=== PATIENT | male | born 1970 | race Caucasian/White ===

== ENCOUNTER → 2016-11-28 | Outpatient (CLI) | payer BC ==
[~2016-11-28] MED LIST: ALL100 PO; ALLO100T PO; ASPEC81 PO; ASPI81TA28 PO; ATOR-22 PO; CARV25TA2 PO; CLOB-65 EXT; CRG25 PO; FURO-85 PO; HMLI SC; INSDGI SC; INSU100I SC; INSU1INJ41 SC; LISI-461 PO; MAGN200T3 PO; METH1TAB81 PO; OMEP20TA14 PO
[2016-11-28 13:13] LABS: BASO ABS # 0.03 K/uL (0-0.2); COMPLETE YES; EOS % 2.9 %; HEMATOCRIT 44.6 % (42-52); IG% 0.3 %; LYMPH % 29.6 %; LYMPH ABS # 0.92 K/uL (1.2-3.4); MEAN CELL VOLUME 87.5 fL (80-100); MEAN CORPUSCULAR HGB CONC 33.2 g/dl (32-36); MEAN PLATELET VOLUME 10.8 fL (7.4-10.4); MONO % 19.9 %; NEUT % 46.3 %; PLATELET COUNT 158 K/uL (130-400); WHITE BLOOD COUNT 3.11 K/uL (4.8-10.8)
[2016-11-28 13:43] LABS: ESTIMATED AVERAGE GLUCOSE 192 mg/dl; HA1C FLAG Normal (Normal)
[2016-11-28 14:06] LABS: ALT/SGPT 38 U/L (12-78); AST/SGOT 17 U/L (15-37); BLOOD UREA NITROGEN 17 mg/dl (7-18); BUN/CREATININE RATIO 11.1 (10-20); CALCIUM 9.1 mg/dl (8.5-10.1); CARBON DIOXIDE 27 mmol/L (21-32); CHLORIDE 104 mmol/L (98-107); GLUCOSE 202 mg/dl (70-99); LYME DISEASE AB IGM NEG (NEG); MAGNESIUM 2.2 mg/dl (1.8-2.4); SODIUM 138 mmol/L (136-145); URIC ACID 5.7 mg/dl (2.6-7.2)
[2016-11-28 14:09] LABS: LYME DISEASE AB IGG NEG (NEG)
[2016-11-28 14:12] LABS: ALKALINE PHOSPHATASE 105 U/L (45-117); CHOLESTEROL 107 mg/dl (0-200); CHOLESTEROL/HDL RATIO 2.4; HDL CHOLESTEROL 44 mg/dl; LDL CHOLESTEROL CALCULATED 43 mg/dl; TRIGLYCERIDES 102 mg/dl (0-150); VERY LOW DENSITY LIPOPROT CALC 20 mg/dl
== END | disposition home or self-care (01) ==
LOC: C.LAB1850 11:39
PROVIDERS: ATTEND Internal Medicine
DX: R68.89 Other general symptoms and signs (principal); E10.65 Type 1 diabetes mellitus with hyperglycemia; M10.9 Gout, unspecified; I48.0 Paroxysmal atrial fibrillation; R80.9 Proteinuria, unspecified

== ENCOUNTER 2017-01-10 07:26 | Inpatient (IN) | payer BC ==
[~2017-01-10] VITALS: Ht 177.8 cm; Wt 65.1 kg
[~2017-01-10 07:26] MED LIST changes: -ALLO100T PO; -ASPI81TA28 PO; -ATOR-22 PO; -CARV25TA2 PO; -FURO-85 PO; -INSU100I SC; -INSU1INJ41 SC
[2017-01-10] MEDS ORDERED: ASPIRIN 81 MG CHEW PO STA (07:50)
[2017-01-10 07:58] LABS: BASO % 0.1 %; BASO ABS # 0.01 K/uL (0-0.2); COMPLETE YES; EOS % 0.4 %; HEMATOCRIT 44.9 % (42-52); IG% 0.1 %; LYMPH % 9.7 %; MEAN CORPUSCULAR HGB CONC 34.5 g/dl (32-36); MEAN PLATELET VOLUME 11.3 fL (7.4-10.4); MONO % 6.4 %; NEUT % 83.3 %; PLATELET COUNT 171 K/uL (130-400); RED BLOOD COUNT 5.16 M/uL (4.7-6.1); WHITE BLOOD COUNT 11.29 K/uL (4.8-10.8)
--- NOTE | 2017-01-10 08:00 | EMERGENCY ROOM VISIT NOTE ---
History Report prepared by Leslie: Judi Shah Under the Supervision of: Dr. Jere Ponce D.O. First contact with patient: 07:31 Chief Complaint: RESPIRATORY PROBLEMS Stated Complaint: HAVING TROUBLE BREATHING-CAN'T LIE DOWN Nursing Triage Summary: Pt reports sob and weakness since Wed evening. Cough when lying down. Midsternal cp into throat last night when lying down. Sweats. Hx of cardiomyopathy. History of Present Illness The patient is a 46 year old male who presents to the Emergency Room with complaints of severe and worsening shortness of breath starting 2 days ago. He has worsening difficulty breathing with lying down and exertion. He does not wear oxygen at home. While lying down last night, the patient had some mid- chest pain. He did not have any chest pain this morning. He denies any pleuritic chest pain, nausea, vomiting, diarrhea, lower extremity swelling, or any other complaints. He is unsure about any recent weight gain. He did not have any recent surgeries, or travels. The patient has a history of cardiomyopathy, diabetes, and hypertension. He had v-fib syncope in 2010. He has a pacemaker in place. He does not have a history of blood clots, or lung disease. He is not on any blood thinners. He denies any history of cigarette smoking. Source of History: patient Onset: 2 days ago Position: other (global) Symptom Intensity: severe Quality: other (shortness of breath) Timing: worsening Modifying Factors (Worsening): exertion, other (lying down) Associated Symptoms: No nausea, No vomiting, No diarrhea Review of Systems See HPI for pertinent positives & negatives. A total of 10 systems reviewed and were otherwise negative. Past Medical & Surgical Medical Problems: (1) Cardiomyopathy (2) Diabetes mellitus type 1 (3) Hypertension (4) Hypomagnesemia (5) Ventricular fibrillation Family History Diabetes mellitus FH: cancer FH: heart disease Hypertension Kidney disease Kidney stones Social History Smoking Status: Never Smoker Marital Status: single Occupation Status: employed Current/Historical Medications Scheduled Allopurinol (Zyloprim), 0.5 TAB PO BID Aspirin (Aspirin Ec), 81 MG PO DAILY Atorvastatin (Lipitor), 20 MG PO DAILY Carvedilol (Coreg), 25 MG PO BID Insulin Glargine-Lixisenatide (Soliqua 100/33 100-33 Unt-Mcg/ml), 38 UNITS SC HS Insulin Lispro (Human) (Humalog), SC WM Lisinopril (Zestril), 20 MG PO QAM Lisinopril (Zestril), 10 MG PO QPM Magnesium (Magnesium), 100 MG PO QAM Miscellaneous Medications Omeprazole Magnesium (Prilosec Otc), 20 MG PO Allergies Coded Allergies: Morphine (Verified Adverse Reaction, Unknown, SHORTNESS OF BREATH IF DELIVERED FAST, 01/10/17) STATED "IF IT'S DELIVERED FAST IT TAKES MY BREATH AWAY" Physical Exam Vital Signs Date Time Temp Pulse Resp B/P (MAP) Pulse Ox O2 Delivery O2 Flow Rate FiO2 01/10/17 12:30 88 18 109/73 97 Nasal Cannula 2.0 01/10/17 11:17 81 16 111/63 98 Nasal Cannula 2.0 01/10/17 10:24 104 01/10/17 09:11 100 18 127/79 95 Nasal Cannula 2.0 01/10/17 08:35 88 Room Air 01/10/17 07:41 111 01/10/17 07:31 88 Room Air 01/10/17 07:30 95 Nasal Cannula 2.0 01/10/17 07:29 37.1 117 20 145/83 88 Room Air Physical Exam GENERAL: Sitting up in bed, diaphoretic, ill-appearing. Nasal canula in place. EYE EXAM: normal conjunctiva OROPHARYNX: no exudate, no erythema, lips, buccal mucosa, and tongue normal and mucous membranes are moist NECK: supple, no nuchal rigidity, no adenopathy, non-tender. No JVD. LUNGS: Faint rhonchi bilaterally. Normal chest wall mechanics HEART: no murmurs, S1 normal and S2 normal ABDOMEN: abdomen soft, non-tender, normo-active bowel sounds, no masses, no rebound or guarding. BACK: Back is symmetrical on inspection and there is no deformity, no midline tenderness, no CVA tenderness. SKIN: no rashes and no bruising UPPER EXTREMITIES: upper extremities are grossly normal. LOWER EXTREMITIES: No pitting edema. Calves are equal bilaterally. NEURO EXAM: Normal sensorium, cranial nerves II-XII grossly intact, normal speech, no gross weakness of arms, no gross weakness of legs. Medical Decision & Procedures ER Provider Diagnostic Interpretation: X-ray and CTA results as stated below per my review and the radiologist's interpretation: SINGLE VIEW CHEST CLINICAL HISTORY: Atypical chest pain. FINDINGS: An AP, portable, upright chest radiograph is compared to study dated 03/10/2011. The examination is degraded by portable technique and patient rotation. A 3-lead cardiac AICD is unchanged in position and partially obscures the left upper chest. The heart is enlarged. The pulmonary vasculature is noncongested. The lungs and pleural spaces are clear. No pneumothorax is seen. The bony thorax is grossly intact. IMPRESSION: 1. Cardiomegaly and AICD. There is no radiographic evidence of congestive failure. 2. No airspace consolidation or pleural effusion is seen. Electronically signed by: Levon Caballero M.D. 01/10/2017 8:01 AM Dictated Date/Time: 01/10/2017 7:[address] ANGIOGRAPHY OF THE CHEST, PULMONARY EMBOLUS PROTOCOL CLINICAL HISTORY: Hypoxia. Elevated d-dimer. COMPARISON STUDY: Chest radiograph March 10, 2011 and March 05, 2017 per TECHNIQUE: Following IV administration of 92 mL of Optiray-320, helical axial images of the chest were obtained utilizing the pulmonary embolus protocol. Maximal intensity projections and sagittal and coronal reformats were viewed on an independent 3D workstation. IV contrast was administered without complication. A dose lowering technique was utilized adhering to the principles of ALARA. CT DOSE: 526.44 mGycm FINDINGS: No pulmonary emboli are identified although the segmental and subsegmental pulmonary arteries are suboptimally assessed due to respiratory motion and quantum mottle artifact. A left subclavian biventricular pacer is in place. There is moderate to marked cardiomegaly with pronounced left ventricular dilatation with there is moderate left atrial enlargement. There is no pericardial effusion. No enlarged axillary, mediastinal or hilar lymph nodes are present. Caliber of the thoracic aorta is normal. There are small bilateral pleural effusions. No pneumothorax is present. No consolidation is identified to suggest pneumonia. There are mild groundglass opacities within the lower lobes with suspected interlobular septal thickening. Bony thorax is unremarkable. There is probable fatty infiltration of the liver. IMPRESSION: 1. No pulmonary emboli identified. Segmental and subsegmental pulmonary arteries suboptimally assessed on this exam. 2. Moderate to marked cardiomegaly with marked left ventricular dilatation. Moderate left atrial dilatation. No pericardial effusion. 3. Small bilateral pleural effusions. 4. Findings suggestive of mild pulmonary edema. No consolidation to suggest pneumonia. Electronically signed by: Db Willoughby M.D. 01/10/2017 9:17 AM Dictated Date/Time: 01/10/2017 9:08 AM Laboratory Results 01/10/17 07:52 Red Blood Count 5.16, Mean Corpuscular Volume 87.0, Mean Corpuscular Hemoglobin 30.0, Mean Corpuscular Hemoglobin Concent 34.5, Mean Platelet Volume 11.3, Neutrophils (%) (Auto) 83.3, Lymphocytes (%) (Auto) 9.7, Monocytes (%) (Auto) 6.4, Eosinophils (%) (Auto) 0.4, Basophils (%) (Auto) 0.1, Neutrophils # (Auto) 9.41, Lymphocytes # (Auto) 1.10, Monocytes # (Auto) 0.72, Eosinophils # (Auto) 0.04, Basophils # (Auto) 0.01 01/10/17 07:52 Test 01/10/17 07:52 White Blood Count 11.29 K/uL (4.8-10.8) Red Blood Count 5.16 M/uL (4.7-6.1) Hemoglobin 15.5 g/dL (14.0-18.0) Hematocrit 44.9 % (42-52) Mean Corpuscular Volume 87.0 fL (80-100) Mean Corpuscular Hemoglobin 30.0 pg (25-34) Mean Corpuscular Hemoglobin Concent 34.5 g/dl (32-36) Platelet Count 171 K/uL (130-400) Mean Platelet Volume 11.3 fL (7.4-10.4) Neutrophils (%) (Auto) 83.3 % Lymphocytes (%) (Auto) 9.7 % Monocytes (%) (Auto) 6.4 % Eosinophils (%) (Auto) 0.4 % Basophils (%) (Auto) 0.1 % Neutrophils # (Auto) 9.41 K/uL (1.4-6.5) Lymphocytes # (Auto) 1.10 K/uL (1.2-3.4) Monocytes # (Auto) 0.72 K/uL (0.11-0.59) Eosinophils # (Auto) 0.04 K/uL (0-0.5) Basophils # (Auto) 0.01 K/uL (0-0.2) RDW Standard Deviation 41.1 fL (36.4-46.3) RDW Coefficient of Variation 12.9 % (11.5-14.5) Immature Granulocyte % (Auto) 0.1 % Immature Granulocyte # (Auto) 0.01 K/uL (0.00-0.02) D-Dimer 710 ug/L FEU (0-500) Anion Gap 8.0 mmol/L (3-11) Est Creatinine Clear Calc Drug Dose 87.1 ml/min Estimated GFR () 69.8 Estimated GFR (Non- 60.3 BUN/Creatinine Ratio 15.1 (10-20) Calcium Level 9.5 mg/dl (8.5-10.1) Total Creatine Kinase 124 U/L (39-308) Creatine Kinase MB 0.9 ng/ml (0.5-3.6) Creatine Kinase MB Ratio 0.7 (0-3.0) Troponin I 0.024 ng/ml (0-0.045) Pro-B-Type Natriuretic Peptide 2176 pg/ml (0-450) Triglycerides Level 89 mg/dl (0-150) Cholesterol Level 130 mg/dl (0-200) HDL Cholesterol 52 mg/dl LDL Cholesterol, Calculated 60 mg/dl VLDL Cholesterol, Calculated 18 mg/dl Cholesterol/HDL Ratio 2.5 Laboratory results per my review. Medications Administered Medications (Trade) Dose Ordered Sig/Ginette Route Start Time Stop Time Status Last Admin Dose Admin Aspirin (Aspirin Chew) 324 mg NOW STAT PO 01/10/17 07:50 01/10/17 07:51 DC 01/10/17 07:55 324 MG Carvedilol (Coreg Tab) 25 mg NOW ONCE PO 01/10/17 09:00 01/10/17 09:01 DC 01/10/17 09:11 25 MG ECG Indication: SOB/dyspnea Rate (beats per minute): 108 Rhythm: other (Atrial sensed ventricularly paced rhythm) Findings: LBBB, other (Right axis deviation) Comparison ECG Date: December 10, 2012 Change: no significant change ED Course ED COURSE: Vital signs were reviewed and showed hypertensive, tachycardic and hypoxic. The patients medical record was reviewed The above diagnostic studies were performed and reviewed. ED treatments and interventions as stated above. 0731: The patient was evaluated in room A03. A complete history and physical examination was performed. 0750: Aspirin 324 mg PO 0900: Carvedilol 25 mg PO 2125: I discussed the patient's case [facility]. Upon reevaluation, the patient is resting comfortably.I discussed my findings with the patient and he understands and agrees with the treatment plan. Based on the patients age, coexisting illnesses, exam and lab findings the decision to treat as an inpatient was made. The patient remained stable while under my care. The patient will be evaluated for further management. Medical Decision Differential diagnoses includes but is not limited to pneumonia, bronchitis, COPD/Asthma exacerbation, pneumothorax, pulmonary embolism, congestive heart failure, acute coronary syndrome Patient is a 46-year-old male with a past medical history of nonischemic cardiomyopathy with an AICD secondary to V. fib in 2010 that presents the ER for exertional shortness of breath associated with shortness of breath when lying down. On exam no overt signs of CHF with exception of mild rhonchi bilaterally. No JVD or pitting edema. Troponin is detectable but not positive. BNP slightly elevated. D-dimer was elevated. CT PE was performed and shows mild CHF. Patient is given home dose of calcium channel alesha. Updated at bedside. Patient was admitted to internal medicine with CHF and hypoxia with pulse ox on room air of 88%. Pacer interrogation was unremarkable. Medication Reconcilliation Current Medication List: was personally reviewed by me Blood Pressure Screening Patient's blood pressure: Elevated blood pressure Blood pressure disposition: Elevated BP felt to be situational Consults Time Called: 2119 Consulting Physician: [facility] Returned Call: 2125 I discussed the patient's case with Dr[facility] Impression Primary Impression: CHF (congestive heart failure) Additional Impressions: Hypoxia Cardiomyopathy Scribe Attestation The scribe's documentation has been prepared under my direction and personally reviewed by me in its entirety. I confirm that the note above accurately reflects all work, treatment, procedures, and medical decision making performed by me. Departure Information Dispostion Being Evaluated By Hospitalist Referrals RV. Lloyd MD (PCP) Patient Instructions My [facility] Problem Qualifiers Primary Impression: CHF (congestive heart failure) Congestive heart failure type: unspecified congestive heart failure type Congestive heart failure chronicity: unspecified congestive heart failure chronicity Qualified Codes: I50.9 - Heart failure, unspecified Additional Impressions: Cardiomyopathy Cardiomyopathy type: unspecified Qualified Codes: I42.9 - Cardiomyopathy, unspecified
[2017-01-10 08:13] LABS: BUN/CREATININE RATIO 15.1 (10-20); CALCIUM 9.5 mg/dl (8.5-10.1); CREATININE 1.4 mg/dl (0.60-1.40)
[2017-01-10 08:18] LABS: CKMB/CK RATIO 0.7 (0-3.0)
[2017-01-10] MEDS ORDERED: CARV25TA2 PO (08:23)
[2017-01-10] MEDS ORDERED: ASPI81TA28 PO (08:23)
[2017-01-10] MEDS ORDERED: ATOR-22 PO (08:23)
[2017-01-10] MEDS ORDERED: ALLO100T PO (08:23)
[2017-01-10] MEDS ORDERED: INSU1INJ41 SC (08:23)
[2017-01-10] MEDS ORDERED: INSU100I SC (08:23)
[2017-01-10 08:35] VITALS: O2SAT 88; Ht 177.8 cm; Wt 65.1 kg
[2017-01-10] MEDS ORDERED: OPTIRAY 320 IV PRN (08:45)
[2017-01-10] MEDS ORDERED: CARVEDILOL 25 MG TAB PO ONE (09:00)
--- NOTE | 2017-01-10 09:18 | DIAGNOSTIC IMAGING REPORT ---
CT ANGIOGRAPHY OF THE CHEST, PULMONARY EMBOLUS PROTOCOL CLINICAL HISTORY: Hypoxia. Elevated d-dimer. COMPARISON STUDY: Chest radiograph March 10, 2011 and March 05, 2017 per TECHNIQUE: Following IV administration of 92 mL of Optiray-320, helical axial images of the chest were obtained utilizing the pulmonary embolus protocol. Maximal intensity projections and sagittal and coronal reformats were viewed on an independent 3D workstation. IV contrast was administered without complication. A dose lowering technique was utilized adhering to the principles of ALARA. CT DOSE: 526.44 mGycm FINDINGS: No pulmonary emboli are identified although the segmental and subsegmental pulmonary arteries are suboptimally assessed due to respiratory motion and quantum mottle artifact. A left subclavian biventricular pacer is in place. There is moderate to marked cardiomegaly with pronounced left ventricular dilatation with there is moderate left atrial enlargement. There is no pericardial effusion. No enlarged axillary, mediastinal or hilar lymph nodes are present. Caliber of the thoracic aorta is normal. There are small bilateral pleural effusions. No pneumothorax is present. No consolidation is identified to suggest pneumonia. There are mild groundglass opacities within the lower lobes with suspected interlobular septal thickening. Bony thorax is unremarkable. There is probable fatty infiltration of the liver. IMPRESSION: 1. No pulmonary emboli identified. Segmental and subsegmental pulmonary arteries suboptimally assessed on this exam. 2. Moderate to marked cardiomegaly with marked left ventricular dilatation. Moderate left atrial dilatation. No pericardial effusion. 3. Small bilateral pleural effusions. 4. Findings suggestive of mild pulmonary edema. No consolidation to suggest pneumonia. Electronically signed by: Db Willoughby M.D. 01/10/2017 9:17 AM Dictated Date/Time: 01/10/2017 9:08 AM
[2017-01-10] MEDS ORDERED: MAGNESIUM HYDROXIDE SUSP 30 ML UDC PO PRN (10:15)
[2017-01-10] MEDS ORDERED: NITROGLYCERIN 0.4 MG SL PER TAB CHARGE SL PRN (10:15)
[2017-01-10] MEDS ORDERED: ACETAMINOPHEN 325 MG TAB PO PRN (10:15)
[2017-01-10] MEDS ORDERED: GLUCOSE 10 TABS/TUBE PO PRN (10:15)
[2017-01-10] MEDS ORDERED: GLUCAGON FOR INJ 1 MG VIAL SQ PRN (10:15)
[2017-01-10] MEDS ORDERED: DEXTROSE 50% 50 ML SYR IV PRN (10:15)
[2017-01-10] MEDS ORDERED: ZOLPIDEM TARTRATE 5 MG TAB PO PRN (10:15)
[2017-01-10] MEDS ORDERED: ALUMINUM/MAGNESIUM/SIMETH (MAALOX MAX) 30 ML UDC PO PRN (10:15)
[2017-01-10] MEDS ORDERED: GLUCOSE 40% GEL 15 GM TUBE PO PRN (10:15)
[2017-01-10 10:45] LABS: CHOLESTEROL/HDL RATIO 2.5
--- NOTE | 2017-01-10 11:34 | HISTORY & PHYSICAL EXAMINATION ---
DATE OF ADMISSION: 01/10/2017 CHIEF COMPLAINT: Shortness of breath. HISTORY OF PRESENT ILLNESS: The patient is a 46-year-old man with past medical history of diabetes mellitus, insulin requiring. The patient also has history of nonischemic cardiomyopathy started in 1997. He was at that time on Lasix, but he quickly got off Lasix. In 2002, the patient had a ventricular arrhythmia and was sent to [place] and had an AICD device placed. The patient was not on Lasix at that time and was doing okay on lisinopril and Coreg. Two days ago, patient started having shortness of breath. Worse when he lays flat with chest tightness. Also having some dry cough. The patient had to use more than 3 pillows to be able to sleep. The patient also was feeling hot and sweaty. His cough was mainly nonproductive and mainly when he lays flat. The patient presented today to the ED and was found to have an oxygen saturation of 88%. ER physician did a D-dimer that was mildly elevated. CT angiogram was done and revealed no pulmonary embolism, but there was marked cardiomegaly, left ventricular dilation and suggestive of mild pulmonary edema. The patient will be admitted for evaluation and treatment. PAST MEDICAL HISTORY: As mentioned in HPI, hypertension, diabetes, nonischemic cardiomyopathy and obesity. SOCIAL HISTORY: Does not smoke or drink. Lives by himself. FAMILY HISTORY: Father had multiple heart attacks, also has family history of diabetes. REVIEW OF SYSTEMS: Denies any headache, double vision, blurry vision. Denies any chest pain but admits to shortness of breath and tightness when he lays flat. Denies any focal weakness, tingling, numbness. Denies any runny nose. Denies any diarrhea, blood in the stool. Denies any burning sensation in the urine or blood. Denies any excessive sputum production with his cough. Admits to some joint pain in his ankles and knees. Rest of the review of systems is negative. CURRENT MEDICATIONS: 1. Allopurinol. 2. Aspirin. 3. Atorvastatin. 4. Carvedilol 25 mg p.o. b.i.d. 5. Insulin glargine-/33 daily. 6. Insulin lispro sliding scale. 7. Lisinopril 20 mg in a.m. and 10 mg in p.m. 8. Magnesium 100 mg daily. 9. Omeprazole. ALLERGIES: MORPHINE. PHYSICAL EXAMINATION: VITAL SIGNS: Temperature 37.1, heart rate is 100, respirations 18, blood pressure 127/79, pulse ox is 95% on nasal cannula and 88% on room air. HEENT: No jaundice, no pallor, wet mucous membranes. NECK: Supple. HEART: S1, S2, slightly distant. No gallop, rub or murmur. LUNGS: Decreased air entry bilaterally. Bilateral basilar rales. ABDOMEN: Soft, nontender, nondistended. NEUROLOGIC: Awake, alert, oriented to time, place, and person. Moves all extremities. Sensation intact. Cranial nerves II-XII appear to be intact. SKIN: No rash or erythema in exposed skin area. PSYCHIATRIC: Appropriate affect and process of thinking. LABORATORY DATA: White blood cell count 11.2, hemoglobin 15.5 and platelets 171. BUN is 21, creatinine 1.4. EKG showed paced rhythm at 108 beats per minute. ASSESSMENT: 1. Acute hypoxic respiratory failure secondary to below. 2. Acute systolic congestive heart failure, acute on chronic. 3. Diabetes mellitus, insulin requiring. 4. Dyslipidemia. 5. Morbid obesity. 6. Hypertension. 7. Clinically suspected obstructive sleep apnea. 8. Chronic kidney disease stage III. PLAN: 1. Admit to telemetry. 2. The patient was exposed to contrast. His creatinine is 1.4, which appears to be his baseline. We will start him on Mucomyst 1200 p.o. b.i.d. for 3 days and will hold his lisinopril for now to give room for Lasix and to prevent further kidney compromise. 3. Lasix 20 mg IV b.i.d. with calculation of I&Os, patient was not on any Lasix. I expect him to be sensitive to Lasix but if he is not showing adequate response, then Lasix can be increased accordingly after rechecking renal function again tomorrow. 4. Continue Coreg same dose. 5. Obtain 2D echo. 6. Cardiology consult. 7. Insulin sliding scale and continue his regular dose of Lantus at home. 8. Obtain lipid panel and hemoglobin A1c to stratify his risk factors. 9. Heparin for DVT prophylaxis. 10. The patient was consulted about obstructive sleep apnea and was directed to have a sleep study as an outpatient, he acknowledged that he understands. ADRIANNA
[2017-01-10 13:40] VITALS: BP 106/73; PULSE 84; TEMP 36.8; O2SAT 96
[2017-01-10] MEDS ORDERED: ACETYLCYSTEINE 1200 MG/6 ML SYR PO SCH ×2 (13:58→14:11)
[2017-01-10 15:07] LABS: PARTIAL THROMBOPLASTIN RATIO 0.9; PROTHROMBIN TIME (PATIENT) 10.7 SECONDS (9.0-12.0)
[2017-01-10] MEDS: FUROSEMIDE INJ 20 MG in SYRINGE 0 ML IV SCH (15:42)
[2017-01-10] MEDS: ACETYLCYSTEINE 1200 MG/6 ML SYR PO SCH ×2 (15:43→20:13)
[2017-01-10 16:09] VITALS: O2SAT 96
[2017-01-10] MEDS: INSULIN ASPART 100 UNITS/ML 3 ML PEN SC SCH ×2 (17:50→21:19)
--- NOTE | 2017-01-10 18:36 | Cardiology Consultation ---
Cardiology Consultation Date of Consultation: Jan 10, 2017. Requesting Physician: Zachary Reason for Consultation: CHF Pt evaluation today including: conversation w/ patient, physical exam, chart review, lab review, review of studies History of Present Illness The patient is a 46-year-old gentleman with a history of a nonischemic cardiomyopathy. Patient states that he would his usual state of health until approximately 3 days ago when he began to experience progressive dyspnea. This was initially with exertion but progressed to the point where he had to sleep upright due to significant breathing difficulty and coughing. Over this period of time he also had some generalized fatigue and weakness. He had an element of chest discomfort that was positional in nature and likely pleuritic. He did not report symptoms of dizziness or lightheadedness. He did have a rare sensation of a fluttering in his chest which was fleeting in nature. He did not report any notable edema. He does not measure his weight her blood pressure routinely. He denied any dietary noncompliance. He has not had a marked change in his diet. Patient would evaluation at [facility] Emergency room was discovered to have an element of pulmonary vascular congestion. He underwent an element of diuresis over the course of today is currently feeling much better. He states that his breathing is significantly improved. He was lying flat in bed when I started the interview today. Past Medical/Surgical History Nonischemic cardiomyopathy Ventricular tachycardia sustained Diabetes mellitus Renal insufficiency Hyperlipidemia Gout History of atrial fibrillation Surgical history Implantation of biventricular ICD. 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 Review of Systems Constitutional: + see HPI Respiratory: + see HPI Cardiac: + see HPI Abdomen: + see HPI Male : + see HPI Neurologic: + see HPI Heme: + see HPI Endo: + see HPI Skin: + see HPI All Other Systems: Reviewed and Negative Allergies Coded Allergies: Morphine (Verified Adverse Reaction, Unknown, SHORTNESS OF BREATH IF DELIVERED FAST, 01/10/17) STATED "IF IT'S DELIVERED FAST IT TAKES MY BREATH AWAY" Medications Current Inpatient Medications Medications (Trade) Dose Ordered Sig/Ginette Route Start Time Stop Time Status Last Admin Dose Admin Ioversol (Optiray 320) 111 ml UD PRN IV 01/10/17 08:45 01/14/17 08:44 Allopurinol (Zyloprim Tab) 50 mg BID PO 01/10/17 21:00 02/09/17 20:59 Aspirin (Ecotrin Tab) 81 mg DAILY PO 01/11/17 09:00 02/10/17 08:59 Atorvastatin Calcium (Lipitor Tab) 20 mg DAILY PO 01/11/17 09:00 02/10/17 08:59 Carvedilol (Coreg Tab) 25 mg BID PO 01/10/17 21:00 02/09/17 20:59 Insulin Glargine (Lantus Solostar Pen) 38 units HS SC 01/10/17 21:00 02/09/17 20:59 Pantoprazole Sodium (Protonix Tab) 40 mg QAM PO 01/11/17 09:00 02/10/17 08:59 Furosemide 20 mg/ Syringe 2 ml @ 4 mls/min BID17 IV 01/10/17 17:00 02/09/17 16:59 01/10/17 15:42 4 MLS/MIN Heparin Sodium (Porcine) (Heparin Sq 5000 Unit/0.5ml) 5,000 unit Q8 SQ 01/10/17 22:00 02/09/17 21:59 Acetaminophen (Tylenol Tab) 650 mg Q4H PRN PO 01/10/17 10:15 02/09/17 10:14 Al Hydrox/Mg Hydrox/Simethicone (Maalox Max Susp) 15 ml Q4H PRN PO 01/10/17 10:15 02/09/17 10:14 Magnesium Hydroxide (Milk Of Magnesia Susp) 30 ml Q12H PRN PO 01/10/17 10:15 02/09/17 10:14 Zolpidem Tartrate (Ambien Tab) 5 mg HSZ PRN PO 01/10/17 10:15 02/09/17 10:14 Nitroglycerin (Nitrostat Tab) 0.4 mg UD PRN SL 01/10/17 10:15 02/09/17 10:14 Insulin Aspart (novoLOG ASPART) SLIDING SCALE If C... ACHS SC 01/10/17 16:30 02/09/17 16:29 01/10/17 17:50 9 UNITS Glucose (Glucose 40% Gel) 15-30 GRAMS 15 GRAMS... UD PRN PO 01/10/17 10:15 02/09/17 10:14 Glucose (Glucose Chew Tab) 4-8 Tablets 4 Tabl... UD PRN PO 01/10/17 10:15 02/09/17 10:14 Dextrose (Dextrose 50% 50ML Syringe) 25-50ML OF 50% DW IV FOR... UD PRN IV 01/10/17 10:15 02/09/17 10:14 Glucagon (Glucagon Inj) 1 mg UD PRN SQ 01/10/17 10:15 02/09/17 10:14 Acetylcysteine (Mucomyst 200mg/ ml Soln) 1,200 mg Q12 PO 01/10/17 14:31 01/12/17 21:01 01/10/17 15:43 1,200 MG Magnesium Oxide (Mag-Ox Tab) 400 mg DAILY PO 01/11/17 09:00 02/10/17 08:59 Physical Exam Vital Signs Past 12 Hours Date Time Temp Pulse Resp B/P (MAP) Pulse Ox O2 Delivery O2 Flow Rate FiO2 01/10/17 16:09 96 Room Air 01/10/17 13:40 36.8 84 18 106/73 (84) 96 Room Air 01/10/17 12:30 88 18 109/73 97 Nasal Cannula 2.0 01/10/17 11:17 81 16 111/63 98 Nasal Cannula 2.0 01/10/17 10:24 104 01/10/17 09:11 100 18 127/79 95 Nasal Cannula 2.0 01/10/17 08:35 88 Room Air 01/10/17 07:41 111 01/10/17 07:31 88 Room Air 01/10/17 07:30 95 Nasal Cannula 2.0 01/10/17 07:29 37.1 117 20 145/83 88 Room Air The patient is alert and oriented. Mood and affect appeared normal. He answered all questions appropriately. HEENT: Pupils are equal and reactive to light and accommodation. Extraocular movements are intact. The sclerae are anicteric. Neuro: Cranial nerves intact Neck: Patient's neck is supple. He has palpable carotid pulses bilaterally without bruits on auscultation. There is no evidence of jugular venous distention. The thyroid is not enlarged. Lungs: Clear to auscultation bilaterally. He has good air movement without use of accessory muscles. No rales wheezes or rhonchi. Chest: Well-healed ICD implant site in the left upper pectoral area Cardiac: Heart demonstrates a regular rate and rhythm. Normal S1 and S2. No murmurs on examination. Pulses: The patient has palpable radial pulses bilaterally that are equal in intensity Extremities: There was no evidence of hypoperfusion. There is no cyanosis or clubbing. There is no edema. Skin: I did not appreciate any rashes on examination today. Data Laboratory Results: Last 24 Hours Test 01/10/17 07:52 01/10/17 14:41 01/10/17 16:04 01/10/17 16:17 White Blood Count 11.29 K/uL Red Blood Count 5.16 M/uL Hemoglobin 15.5 g/dL Hematocrit 44.9 % Mean Corpuscular Volume 87.0 fL Mean Corpuscular Hemoglobin 30.0 pg Mean Corpuscular Hemoglobin Concent 34.5 g/dl Platelet Count 171 K/uL Mean Platelet Volume 11.3 fL Neutrophils (%) (Auto) 83.3 % Lymphocytes (%) (Auto) 9.7 % Monocytes (%) (Auto) 6.4 % Eosinophils (%) (Auto) 0.4 % Basophils (%) (Auto) 0.1 % Neutrophils # (Auto) 9.41 K/uL Lymphocytes # (Auto) 1.10 K/uL Monocytes # (Auto) 0.72 K/uL Eosinophils # (Auto) 0.04 K/uL Basophils # (Auto) 0.01 K/uL RDW Standard Deviation 41.1 fL RDW Coefficient of Variation 12.9 % Immature Granulocyte % (Auto) 0.1 % Immature Granulocyte # (Auto) 0.01 K/uL D-Dimer 710 ug/L FEU Sodium Level 138 mmol/L Potassium Level 4.0 mmol/L Chloride Level 105 mmol/L Carbon Dioxide Level 25 mmol/L Anion Gap 8.0 mmol/L Blood Urea Nitrogen 21 mg/dl Creatinine 1.40 mg/dl Est Creatinine Clear Calc Drug Dose 87.1 ml/min Estimated GFR () 69.8 Estimated GFR (Non- 60.3 BUN/Creatinine Ratio 15.1 Random Glucose 170 mg/dl Calcium Level 9.5 mg/dl Total Creatine Kinase 124 U/L 94 U/L Creatine Kinase MB 0.9 ng/ml Creatine Kinase MB Ratio 0.7 Troponin I 0.024 ng/ml 0.024 ng/ml Pro-B-Type Natriuretic Peptide 2176 pg/ml Triglycerides Level 89 mg/dl Cholesterol Level 130 mg/dl HDL Cholesterol 52 mg/dl LDL Cholesterol, Calculated 60 mg/dl VLDL Cholesterol, Calculated 18 mg/dl Cholesterol/HDL Ratio 2.5 Prothrombin Time 10.7 SECONDS Prothromb Time International Ratio 1.0 Activated Partial Thromboplast Time 23.1 SECONDS Partial Thromboplastin Ratio 0.9 Bedside Glucose 266 mg/dl Imaging: Chest x-ray demonstrated cardiomegaly an element of pulmonary vascular congestion EKG: A sensed V paced. I performed a device interrogation which revealed good pacing percentages. There is good sensing on the atrial and ventricular leads. There were no arrhythmias recorded. Assessment & Plan 1. Acute decompensated systolic heart failure: Patient had elevated BNP, symptoms and objective findings consistent with pulmonary vascular congestion. This appears to have evolved over several days. The exact etiology of his decompensation is not clear. He did not have any arrhythmia such as atrial fibrillation. He did not report any dietary noncompliance. He appears to be compliant with medical therapy. He may have had significantly elevated blood pressure, but this was not measured. I doubt that he has had a significant reduction in his overall LV systolic function as it has not been known to be quite poor in any event. His examination does not support the development of any acute valvular lesions. He has responded nicely to diuresis. The exact amount of diuresis is not available as no EDDI does have been obtained. However , his exam is currently normal and he has clinically improved. This point would seem reasonable continue him on low-dose diuretic and his outpatient medical regimen. I would occur gym to monitor his weights daily and use diuretics as needed for significant weight gain. 2. Nonischemic cardiomyopathy: On Donaldo inhibitor and beta-alesha. Also with resynchronization therapy. 3. Reported history of atrial fibrillation: No recorded events recently.
[2017-01-10 19:36] VITALS: BP 120/82; PULSE 87; TEMP 36.3; O2SAT 94
[2017-01-10] MEDS: ALLOPURINOL 100 MG TAB PO SCH (20:13)
[2017-01-10] MEDS: CARVEDILOL 25 MG TAB PO SCH (20:13)
[2017-01-10] MEDS ORDERED: INSULIN GLARGINE SOLOSTAR 100 UNITS/ML 3 ML PEN SC SCH (21:00)
[2017-01-10] MEDS: HEPARIN SOD 5000 UNIT/0.5 ML CARP SQ SCH (21:18)
[2017-01-11 00:04] VITALS: BP 96/63; PULSE 71; TEMP 36.5; O2SAT 97
[2017-01-11 04:22] VITALS: BP 103/62; PULSE 86; TEMP 36.3; O2SAT 94
[2017-01-11 04:27] LABS: BASO % 0.2 %; BASO ABS # 0.01 K/uL (0-0.2); COMPLETE YES; EOS % 1.6 %; HEMATOCRIT 42.3 % (42-52); IG% 0.2 %; LYMPH % 31.9 %; LYMPH ABS # 1.79 K/uL (1.2-3.4); MEAN CELL VOLUME 88.1 fL (80-100); NEUT % 56.1 %; PLATELET COUNT 142 K/uL (130-400); WHITE BLOOD COUNT 5.62 K/uL (4.8-10.8)
[2017-01-11 04:50] LABS: BUN/CREATININE RATIO 14.8 (10-20); CALCIUM 8.8 mg/dl (8.5-10.1); CREATININE 1.6 mg/dl (0.60-1.40); MAGNESIUM 1.8 mg/dl (1.8-2.4); POTASSIUM 3.7 mmol/L (3.5-5.1)
[2017-01-11 04:55] LABS: PHOSPHORUS 3.6 mg/dl (2.5-4.9)
[2017-01-11] MEDS: HEPARIN SOD 5000 UNIT/0.5 ML CARP SQ SCH (05:51)
[2017-01-11 06:25] LABS: ESTIMATED AVERAGE GLUCOSE 169 mg/dl; HA1C FLAG Normal (Normal)
[2017-01-11 07:56] VITALS: BP 117/73; PULSE 83; TEMP 36.6; O2SAT 95
[2017-01-11] MEDS: ALLOPURINOL 100 MG TAB PO SCH (07:59)
[2017-01-11] MEDS: CARVEDILOL 25 MG TAB PO SCH (08:00)
[2017-01-11] MEDS: ACETYLCYSTEINE 1200 MG/6 ML SYR PO SCH (08:01)
[2017-01-11] MEDS: FUROSEMIDE INJ 20 MG in SYRINGE 0 ML IV SCH (08:02)
[2017-01-11] MEDS: INSULIN ASPART 100 UNITS/ML 3 ML PEN SC SCH ×2 (08:31→12:44)
[2017-01-11] MEDS ORDERED: PANTOprazole SOD 40 MG TAB PO SCH (09:00)
[2017-01-11] MEDS ORDERED: MAGNESIUM OXIDE 400 MG TAB PO SCH (09:00)
[2017-01-11] MEDS ORDERED: ASPIRIN 81 MG ECTAB PO SCH (09:00)
[2017-01-11] MEDS ORDERED: NON-FORMULARY MEDICATION (Magnesium 100 MG) PO SCH (09:00)
[2017-01-11] MEDS ORDERED: ATORVASTATIN 20 MG TAB PO SCH (09:00)
[2017-01-11 12:14] VITALS: BP 106/72; PULSE 86; TEMP 36.3; O2SAT 95
[2017-01-11] MEDS ORDERED: FURO-85 PO (12:37)
--- NOTE | 2017-01-11 12:40 | Discharge Instructions ---
Discharge Instructions Date of Service Jan 11, 2017. Admission Reason for Admission: CHF Discharge Discharge Diagnosis / Problem: Acute CHF exacerbation Discharge Goals Goal(s): Decrease discomfort, Improve function, Increase independence, Improve disease control, Learn about illness, Diagnostic testing, Therapeutic intervention, Prevent Disease Progression Activity Recommendations Activity Limitations: resume your previous activity . Instructions / Follow-Up Instructions / Follow-Up Patient to be discharged home Please note addition of lasix 20 mg to take once daily, prescription sent to pharmacy Please check weight on daily basis, if gain of 1-2 lbs in one day you can take an extra dose Please follow up with cardiology in 1-2 weeks Call your Primary Care doctor if any of the following symptoms or problems start or get worse: * Shortness of breath or difficulty breathing * Wake up at night short of breath * Chest pain * Cough * Swelling of your hands, feet, or legs * More fatigued or tired with your normal activity * Palpitations - sudden fast heart beats WEIGHT * Weigh yourself every morning after using the bathroom. * Use the same scale. * Wear the same amount of clothing. * Write your weight down on a chart. * Call your Primary Care doctor if you gain more than 2-3 pounds in 1-2 days. MEDICATIONS * Use this discharge instruction sheet for medication instructions. * Take your medications at the time your doctor ordered. * Do not skip a dose of your medicines. * Read your medicine information when you get home. * Know all of the side effects of your medicine. If in doubt, ask your pharmacist * Call your Primary Care doctor's office if you have any side effects. * Be sure all of your doctors know what medicine and herbs you take (including cold, flu, and herbal medicine). Take the following with you to your follow-up doctor appointments: * Weight Chart * Medication List * List of questions Do not drink excessive alcohol, beer or wine. Current Hospital Diet Patient's current hospital diet: Low Sodium Diet (2gm Na) Discharge Diet Recommended Diet: Low Sodium Diet (2gm Na) Pending Studies Studies pending at discharge: no Laboratory Results Hemoglobin A1c Test 01/11/17 00:00 Range/Units Estimated Average Glucose 169 mg/dl Hemoglobin A1c 7.5 H 4.5-5.6 % Lipid Panel Test 01/10/17 07:52 Range/Units Triglycerides Level 89 0-150 mg/dl Cholesterol Level 130 0-200 mg/dl HDL Cholesterol 52 mg/dl Cholesterol/HDL Ratio 2.5 LDL Cholesterol, Calculated 60 mg/dl Medical Emergencies . Who to Call and When: Call 911 or go to the Emergency Room if: * If at any time you feel your situation is an emergency * You have tightness or pain in your chest that does not go away with rest or Nitroglycerin * You are very short of breath even with rest . Non-Emergent Contact Non-Emergency issues call your: Primary Care Provider Call Non-Emergent contact if: you have any medication questions . . "Provider Documentation" section prepared by Ashwin Blanchard. . VTE Core Measure Inpt VTE Proph given/why not?: Unfractionated heparin SQ
[2017-01-11 12:51] VITALS: BP 106/72; PULSE 86; TEMP 36.3; O2SAT 95
--- NOTE | 2017-01-11 13:20 | ECHOCARDIOGRAM REPORT ---
*NOTICE TO RECEIVING CONSTITUTION PARTY AGENCY This information is strictly Confidential and protected under [place] law. [place] law prohibits you from making any further disclosure of this information unless further disclosure is expressly permitted by the written consent of the person to whom it pertains or is authorized by law. A general authorization for the release of medical or other information is not sufficient for this purpose. Hospital accepts no responsibility if the information is made available to any other person, INCLUDING THE PATIENT. Interpretation Summary * Name: LINDA CERRATO Study Date: 01/11/2017 06:58 AM BP: 103/62 mmHg * Patient Location: [facility]\S\N276\S\1 HR: 94 * : 1970 (M/d/yyyy) Gender: Male Height: 70 in * Age: 46 yrs Ethnicity: [place] Weight: 267 lb * Ordering Physician: Zacarias Espinosa * Referring Physician: Self, Referred * Performed By: Penny Key RCS * * Reason For Study: Dilated cardiomyopathy * BSA: 2.4 m2 * -- Conclusions -- * The left ventricle is severely dilated. * Left ventricular systolic function is severely reduced. * The left atrium is severely dilated. * The right atrium is mildly dilated. * There is moderate mitral regurgitation. * There is evidence of restrictive filling and severe diastolic dysfunction. * Compared to an echocardiogram from 2011, there does not appear to be any significant change Procedure Details * A complete two-dimensional transthoracic echocardiogram was performed (2D, M-mode, Doppler and color flow Doppler). * The study was technically adequate. Left Ventricle * The left ventricle is severely dilated. * There is normal left ventricular wall thickness. * Left ventricular systolic function is severely reduced. * Ejection Fraction = 20-25%. * Severe global hypokinesis with some apacal akinesis Right Ventricle * The right ventricle is grossly normal size. * There is a pacemaker lead in the right ventricle. * The right ventricular systolic function is normal as assessed by tricuspid annular plane systolic excursion (TAPSE) (normal >1.5 cm). Atria * The left atrium is severely dilated. * The right atrium is mildly dilated. * There is a catheter/pacemaker lead seen in the right atrium. Mitral Valve * The mitral valve is grossly normal. * There is moderate mitral regurgitation. Tricuspid Valve * The tricuspid valve is not well visualized, but is grossly normal. * Significant tricuspid regurgitation is absent. Aortic Valve * The aortic valve is normal in structure and function. * No hemodynamically significant valvular aortic stenosis. * There is no significant aortic regurgitation. Great Vessels * The aortic root is normal size. Pericardium/Pleural * There is no pericardial effusion. Left Ventricular Diastolic Function * There is evidence of restrictive filling and severe diastolic dysfunction. MMode 2D Measurements and Calculations IVSd 10 cm IVSs 1.2 cm LVIDd 8.1 cm LVIDs 6.3 cm LVPWd 0.99 cm LVPWs 1.6 cm IVS/LVPW 1.0 FS 23.1 % EDV(Teich) 358.0 ml ESV(Teich) 198.0 ml EF(Teich) 44.7 % EDV(cubed) 539.0 ml ESV(cubed) 244.8 ml EF(cubed) 54.6 % % IVS thick 19.3 % % LVPW thick 63.0 % LV mass(C)d 415.1 grams LV mass(C)dI 175.9 grams/m\S\2 LV mass(C)s 414.4 grams LV mass(C)sI 175.6 grams/m\S\2 SV(Teich) 160.0 ml SI(Teich) 67.8 ml/m\S\2 SV(cubed) 294.2 ml SI(cubed) 124.6 ml/m\S\2 Ao root diam 2.7 cm Ao root area 5.8 cm\S\2 ACS 1.7 cm LA dimension 6.0 cm asc Aorta Diam 2.9 cm LA/Ao 2.2 LVOT diam 1.9 cm LVOT area 2.9 cm\S\2 LVAd ap4 59.3 cm\S\2 LVLd ap4 10.2 cm EDV(MOD-sp4) 276.6 ml EDV(sp4-el) 292.0 ml LVAs ap4 49.1 cm\S\2 LVLs ap4 9.4 cm ESV(MOD-sp4) 205.9 ml ESV(sp4-el) 218.5 ml EF(MOD-sp4) 25.5 % EF(sp4-el) 25.2 % LVAd ap2 52.4 cm\S\2 LVLd ap2 9.6 cm EDV(MOD-sp2) 233.3 ml EDV(sp2-el) 243.3 ml LVAs ap2 44.5 cm\S\2 LVLs ap2 9.2 cm ESV(MOD-sp2) 182.2 ml ESV(sp2-el) 182.8 ml EF(MOD-sp2) 21.9 % EF(sp2-el) 24.9 % LVLd %diff -6.51 % EDV(MOD-bp) 264.9 ml LVLs %diff -1.73 % ESV(MOD-bp) 199.7 ml EF(MOD-bp) 24.6 % SV(MOD-sp4) 70.7 ml SI(MOD-sp4) 29.9 ml/m\S\2 SV(MOD-sp2) 51.1 ml SI(MOD-sp2) 21.7 ml/m\S\2 SV(MOD-bp) 65.2 ml SI(MOD-bp) 27.6 ml/m\S\2 SV(sp4-el) 73.5 ml SI(sp4-el) 31.1 ml/m\S\2 SV(sp2-el) 60.5 ml SI(sp2-el) 25.6 ml/m\S\2 Doppler Measurements and Calculations MV E max haroldo 94.4 cm/sec MV dec time 0.27 sec Ao V2 max 115.6 cm/sec Ao max PG 5.3 mmHg Ao max PG (full) 2.4 mmHg BHARATH(V,A) 2.1 cm\S\2 BHARATH(V,D) 2.1 cm\S\2 LV V1 max PG 2.9 mmHg LV V1 max 85.3 cm/sec
--- NOTE | 2017-01-11 14:59 | Discharge Summary ---
Discharge Summary Date of Service Jan 11, 2017. Discharge Summary Admission Date: Jan 10, 2017 at 10:18 Discharge Date: Jan 11, 2017 Discharge Disposition: Home Principal Diagnosis: Acute mixed diastolic and systolic CHF exacerbation Immunizations: Have You Had Influenza Vaccine: No Influenza Vaccine Date: Apr 09, 2010 History of Tetanus Vaccine?: Yes Tetanus Immunization Date: Dec 23, 1999 History of Pneumococcal: Yes Pneumococcal Date: Mar 21, 2010 History of Hepatitis B Vaccine: No Hepatitis Immunization Date: Dec 22, 2005 Consultations: Cardiology Medication Reconciliation New Medications: Furosemide (Lasix) 20 Mg Tab 20 MG PO DAILY, #30 TAB Continued Medications: Allopurinol (Zyloprim) 100 Mg Tab 0.5 TAB PO BID, TAB Aspirin (Aspirin Ec) 81 Mg Tab 81 MG PO DAILY Atorvastatin (Lipitor) 20 Mg Tab 20 MG PO DAILY, TAB Carvedilol (Coreg) 25 Mg Tab 25 MG PO BID, TAB Insulin Glargine-Lixisenatide (Soliqua 100/33 100-33 Unt-Mcg/ml) 1 Inj Inj 38 UNITS SC HS Insulin Lispro (Human) (Humalog) 100 Unit/Ml Inj SC WM SLIDING SCALE Lisinopril (Zestril) 10 Mg Tab 20 MG PO QAM Lisinopril (Zestril) 10 Mg Tab 10 MG PO QPM Magnesium (Magnesium) 200 Mg Tab 100 MG PO QAM Omeprazole Magnesium (Prilosec Otc) 20 Mg Tab 20 MG PO, TAB PRN Discharge Exam Review of Systems: Constitutional: No fever, No chills, No sweats, No weakness ENT: No hearing loss, No unusual epistaxis, No nasal symptoms, No sore throat Respiratory: No cough, No sputum, No wheezing, No shortness of breath, No dyspnea on exertion Cardiovascular: No chest pain, No orthopnea, No PND, No edema Abdomen: No pain, No nausea, No vomiting, No diarrhea Musculoskeletal: No joint pain, No muscle pain, No swelling, No calf pain Genitourinary - Male: No hematuria, No dysuria, No urinary frequency, No urinary urgency Neurologic: No memory loss, No paralysis, No weakness, No vertigo Psychiatric: No depression symptoms, No anhedonism, No anxiety, No insomnia Endocrine: No fatigue, No excessive thirst Integumentary: No rash, No itch Physical Exam: General Appearance: WD/WN, no apparent distress Eyes: normal inspection, PERRL, EOMI, sclerae normal Neck: supple, no adenopathy, thyroid normal, no JVD Respiratory/Chest: chest non-tender, lungs clear, normal breath sounds, no respiratory distress Cardiovascular: regular rate, rhythm, no edema, no gallop, no JVD Abdomen / GI: normal bowel sounds, non tender, soft, no organomegaly Extremities: normal inspection, no calf tenderness, normal capillary refill , no pedal edema Neurologic/Psychiatric: no motor/sensory deficits, alert, normal mood/affect , normal reflexes, oriented x 3 Hospital Course ASSESSMENT: 1. Acute hypoxic respiratory failure secondary to below. 2. Acute systolic/diastolic congestive heart failure, acute on chronic. 3. Diabetes mellitus, insulin requiring. 4. Dyslipidemia. 5. Morbid obesity. 6. Hypertension. 7. Clinically suspected obstructive sleep apnea. 8. Chronic kidney disease stage III. PLAN: Admit to telemetry. Exact etiology unclear No cardiac events, EKG no ischemic events No arrhythmias noted Responded well to lasix 20 mg IV BID with adequate diuresis ECHO unchanged from previous, EF 20-25%, severe diastolic dysfunction Cardiology consulted Will add lasix 20 mg PO daily on discharge F/U with cardiology on discharge Total Time Spent: Greater than 30 minutes This includes examination of the patient, discharge planning, medication reconciliation, and communication with other providers. Discharge Instructions Please refer to the electronic Patient Visit Report (Discharge Instructions) for additional information. Additional Copies To RV. Lloyd MD
== END 2017-01-11 13:18 | disposition home or self-care (01) | DRG 291 ==
LOC: C.EDB 07:27 → C.MED 10:18 → ENRESERV 12:15
PROVIDERS: ADMIT Internal Medicine; ATTEND Internal Medicine
DX: I50.23 Acute on chronic systolic (congestive) heart failure (principal); J96.01 Acute respiratory failure with hypoxia; I13.0 Hypertensive heart and chronic kidney disease with heart failure and stage 1 through stage 4 chronic kidney disease, or unspecified chronic kidney disease; I42.9 Cardiomyopathy, unspecified; N18.3 Chronic kidney disease, stage 3 (moderate); E10.22 Type 1 diabetes mellitus with diabetic chronic kidney disease; E78.5 Hyperlipidemia, unspecified; M10.9 Gout, unspecified; Z79.4 Long term (current) use of insulin; Z79.82 Long term (current) use of aspirin; Z79.899 Other long term (current) drug therapy

== ENCOUNTER → 2017-02-07 | Outpatient (CLI) | payer BC ==
[~2017-02-07] MED LIST changes: -ALL100 PO; +ALLO100T PO; -ASPEC81 PO; +ASPI81TA28 PO; +ATOR-22 PO; +CARV25TA2 PO; -CLOB-65 EXT; -CRG25 PO; +FURO-85 PO; -HMLI SC; -INSDGI SC; +INSU100I SC; +INSU1INJ41 SC; -METH1TAB81 PO
[2017-02-07 17:53] LABS: URINE APPEARANCE CLEAR (CLEAR); URINE BILIRUBIN NEG (NEG); URINE COLOR YELLOW; URINE EPITHELIAL CELL AUTO 0-5 /lpf (0-5); URINE NITRITE NEG (NEG); URINE SPECIFIC GRAVITY 1.024 (1.000-1.030); UROBILINOGEN NEG (NEG); ZZUR CULT IF INDIC CLEAN CATCH NO
[2017-02-07 17:54] LABS: MANUAL MICROSCOPIC REQUIRED? NO; REVIEW REQ? NO
[2017-02-07 18:18] LABS: BLOOD UREA NITROGEN 20 mg/dl (7-18); BUN/CREATININE RATIO 15.7 (10-20); CALCIUM 9.1 mg/dl (8.5-10.1); CARBON DIOXIDE 27 mmol/L (21-32); CHLORIDE 107 mmol/L (98-107); GLUCOSE 149 mg/dl (70-99); POTASSIUM 3.9 mmol/L (3.5-5.1); SODIUM 141 mmol/L (136-145)
[2017-02-07 18:33] LABS: RATIO 35.1 mcg/mg (0-30.0)
== END | disposition home or self-care (01) ==
LOC: C.LAB1850 17:20
PROVIDERS: ATTEND Internal Medicine
DX: R80.9 Proteinuria, unspecified (principal); E10.65 Type 1 diabetes mellitus with hyperglycemia; I42.9 Cardiomyopathy, unspecified

== ENCOUNTER → 2017-10-20 | Outpatient (CLI) | payer BC ==
[~2017-10-20] MED LIST changes: -FURO-85 PO
[2017-10-20 17:30] LABS: BASO % 0.5 %; BASO ABS # 0.03 K/uL (0-0.2); EOS % 1.3 %; EOS ABS # 0.07 K/uL (0-0.5); HEMATOCRIT 41.1 % (42-52); HEMOGLOBIN 13.9 g/dL (14.0-18.0); LYMPH % 22.2 %; LYMPH ABS # 1.21 K/uL (1.2-3.4); MEAN CELL VOLUME 88.6 fL (80-100); MEAN CORPUSCULAR HGB CONC 33.8 g/dl (32-36); MEAN PLATELET VOLUME 10.2 fL (7.4-10.4); MONO % 7.9 %; MONO ABS # 0.43 K/uL (0.11-0.59); NEUT % 68.1 %; NEUT ABS # 3.72 K/uL (1.4-6.5); PLATELET COUNT 187 K/uL (130-400); RED CELL DISTRIBUTION WIDTH SD 41.7 fL (36.4-46.3); WHITE BLOOD COUNT 5.46 K/uL (4.8-10.8)
[2017-10-20 17:51] LABS: INR 0.9 (0.9-1.1); PTT PATIENT 26.4 SECONDS (21.0-31.0)
[2017-10-20 18:02] LABS: BLOOD UREA NITROGEN 25 mg/dl (7-18); CALCIUM 8.6 mg/dl (8.5-10.1); CARBON DIOXIDE 26 mmol/L (21-32); CREATININE 1.61 mg/dl (0.60-1.40); GLUCOSE 213 mg/dl (70-99); POTASSIUM 4.4 mmol/L (3.5-5.1); SODIUM 139 mmol/L (136-145)
== END | disposition home or self-care (01) ==
LOC: C.LAB1850 16:59
PROVIDERS: ATTEND Physician Assistant Medical
DX: I42.9 Cardiomyopathy, unspecified (principal)

== ENCOUNTER 2020-05-08 00:49 | Observation (INO) ==
--- NOTE | 2020-05-08 01:11 | Emergency Department Note ---
History of Present Illness General Chief Complaint: Chest Pain Stated Complaint: HAVING TROUBLE BREATHING,CHEST PAIN Time Seen by Provider: 05/08/20 00:55 History of Present Illness Maximum Pain Intensity: 6 This 49-year-old male with a history of cardiomyopathy presents to the ER compla ining of exertional chest pain and dyspnea for the past 4 days Location: Chest Quality: Pressure Severity: Moderate Duration: Past 4 days Timin days ago Context: It is got worse and patient came in Modifying factors: better with sitting; worse with activity Patient wears a CPAP. He states when he lays flat symptoms he wakes up and feels like he cannot catch his breath. This has been ongoing for a few weeks. Worse the past 4 days. Patient states tonight he developed exertional chest pain and called the on-call was advised to go to the ER. He follows with Dr. Wilks. He has cardiomyopathy from a viral infection when he was in his 20s. Patient denies fever, chills, loss of taste or smell, flulike illness, abdominal pain, leg pain or swelling. No recent travel. No tobacco use. No history of PE, DVT or heart attack. Blood sugar was in the 150s today. Home Medications Medication Instructions Recorded Confirmed Type aspirin 81 mg PO DAILY 03/14/18 05/08/20 History omeprazole magnesium [Prilosec OTC] 20 mg PO DAILY PRN 03/14/18 05/08/20 History carvedilol 25 mg tablet 25 mg PO BID #180 tab 10/27/19 05/08/20 Rx insulin lispro 100 unit/mL 100 units SQ .COMPLEX ml 12/24/19 05/08/20 History subcutaneous solution magnesium 200 mg tablet 500 mg PO DAILY tab 12/24/19 05/08/20 History insulin glargine 100 55 units SQ QPM 90 Days #60 ml 12/27/19 05/08/20 Rx unit-lixisenatide 33 mcg/mL subcutaneous pen OneTouch Ultra Blue Test Strip #600 ea NS 01/04/20 05/03/20 Rx sacubitril 24 mg-valsartan 26 mg 1 tab PO BID #180 tab 01/07/20 05/08/20 Rx tablet atorvastatin 20 mg tablet 20 mg PO DAILY #90 tab 02/28/20 05/08/20 Rx ergocalciferol (vitamin D2) 1,250 See Rx Instructions .ROUTE 03/28/20 05/08/20 Rx mcg (50,000 unit) capsule .COMPLEX #12 capsule allopurinol 300 mg tablet 300 mg PO DAILY #90 tab 04/03/20 05/08/20 Rx spironolactone 25 mg tablet 25 mg PO DAILY #90 tab 05/03/20 05/08/20 Rx Allergies Allergy/AdvReac Type Severity Reaction Status Date / Time bupropion [From Contrave] Allergy Unknown Unknown Verified 05/08/20 01:11 naltrexone [From Contrave] Allergy Unknown Unknown Verified 05/08/20 01:11 morphine AdvReac Unknown SHORTNESS Verified 05/08/20 01:11 OF BREATH IF DELIVERED FAST Past Med/Surg History Medical History Cardiomyopathy Chronic renal insufficiency Diabetes HTN (hypertension) Surgical History History of permanent cardiac pacemaker placement Family History Father Diabetes Lung cancer Social History Smoking Status: Never smoker Hx Alcohol Use: No Hx Substance Use: No Preferred Language: Ghanaian Communication Ability: Effective Visual Impairment: No Limitations Hearing Ability: Normal marital status: current occupational status: employed 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 Feels Safe at Home: Yes Seatbelt Use: always Review of Systems A total of 10 systems reviewed and were otherwise negative Physical Exam Vital Signs Vital Signs - 24 hr 05/08/20 01:03 05/08/20 01:09 05/08/20 01:21 Temperature 36.9 C Temperature Source Oral Pulse Rate 91 H Pulse Rate [Right Finger] 92 H Respiratory Rate 20 20 Respiratory Effort / Characteristics Non-Labored Spontaneous Non-Labored Spontaneous Respiratory Depth Normal Normal Respiratory Pattern Regular Blood Pressure 125/106 H Blood Pressure [Right Arm] 137/96 Blood Pressure Mean 112 Blood Pressure Mean [Right Arm] 109 Pulse Oximetry 98 98 98 Oxygen Delivery Method Room Air Room Air Room Air Sepsis Recent Fever Within 48 Hours No Sepsis New/Unexplained Change in Mental Status N/A Sepsis Action Taken by Nursing No Action Required Pulse Oximetry Post Tiitration 98 05/08/20 02:35 Temperature Temperature Source Pulse Rate Pulse Rate [Right Finger] 92 H Respiratory Rate 20 Respiratory Effort / Characteristics Respiratory Depth Respiratory Pattern Blood Pressure Blood Pressure [Right Arm] 132/90 Blood Pressure Mean Blood Pressure Mean [Right Arm] 104 Pulse Oximetry 98 Oxygen Delivery Method Sepsis Recent Fever Within 48 Hours Sepsis New/Unexplained Change in Mental Status Sepsis Action Taken by Nursing Pulse Oximetry Post Tiitration VITALS: Vitals are noted on the nurse's note and reviewed by myself. Vital signs stable. GENERAL: Pleasant male answering questions appropriately, in no acute distress, nondiaphoretic, well-developed well-nourished. SKIN: Capillary reflex less than 2 seconds. HEENT: Normocephalic. PERRLA. EOMI. Nares patent. Mucous membranes moist. Neck is supple without nuchal rigidity. HEART: Regular rate and rhythm LUNGS: Clear to auscultation bilaterally without wheezes, rales or rhonchi. No retractions or accessory muscle use. ABDOMEN: Positive bowel sounds x 4. Normal tympanic percussion. Soft, nontender, without masses or organomegaly. Solano sign negative. No guarding or rebound tenderness. MUSCULOSKELETAL: No gross musculoskeletal defects. NEURO: Patient was alert and oriented to person place and time. No focal neurological deficits. Course Administered Medications Discontinued Medications Ioversol (Optiray 320 125ml) 125 ml IV ONCE ONE Stop: 05/08/20 02:36 Last Admin: 05/08/20 02:35 Dose: 119 ml Documented by: [id number] Medical Decision Making Medical Records Attestation: I reviewed the patient's medical records. Home Medications Current Medication List: was personally reviewed by me Laboratory Data Attestation: I reviewed the patient's lab results. Result diagrams: 05/08/20 01:07 05/08/20 01:44 Labs: Lab Results 05/08/20 05/08/20 05/08/20 Range/Units 01:07 01:07 01:07 WBC 8.18 (4.8-10.8) K/uL RBC 4.71 (4.7-6.1) M/uL Hgb 14.5 (14.0-18.0) g/dL Hct 42.6 (42-52) % MCV 90.4 (80-100) fL MCH 30.8 (25-34) pg MCHC 34.0 (32-36) g/dL RDW Std Deviation 44.8 (36.4-46.3) fL RDW Coeff of Jovan 13.7 (11.5-14.5) % Plt Count 167 (130-400) K/uL MPV 12.3 H (7.4-10.4) fL Immature Gran % (Auto) 0.1 % Neut % (Auto) 73.2 % Lymph % (Auto) 19.6 % [place] % (Auto) 5.9 % Eos % (Auto) 1.1 % Baso % (Auto) 0.1 % Neut # (Auto) 5.99 (1.4-6.5) K/uL Lymph # (Auto) 1.60 (1.2-3.4) K/uL [place] # (Auto) 0.48 (0.11-0.59) K/uL Eos # (Auto) 0.09 (0-0.5) K/uL Baso # (Auto) 0.01 (0-0.2) K/uL Immature Gran # (Auto) 0.01 (0.00-0.02) K/uL PT Cancelled INR Cancelled APTT Cancelled PTT Ratio Cancelled D-Dimer Cancelled Sodium 138 (136-145) mmol/L Potassium (3.5-5.1) mmol/L Chloride 109 H (98-107) mmol/L Carbon Dioxide 23 (21-32) mmol/L Anion Gap 6.0 (3-11) BUN 26 H (7-18) mg/dl Creatinine 1.55 H (0.6-1.4) mg/dl Est Cr Clr Drug Dosing 77.9 ml/min Est GFR ( Amer) 60.5 Est GFR (Non-Af Amer) 52.2 BUN/Creatinine Ratio 16.6 (10-20) Glucose 158 H (70-99) mg/dl Calcium 8.7 (8.5-10.1) mg/dl Total Bilirubin 1.3 H (0.2-1) mg/dl AST (15-37) U/L ALT 46 (12-78) U/L Alkaline Phosphatase 97 (45-117) U/L Troponin I 0.015 (0-0.045) ng/ml Total Protein 7.4 (6.4-8.2) gm/dl Albumin 3.6 (3.4-5.0) gm/dl Globulin 3.8 (2.5-4.0) gm/dl Albumin/Globulin Ratio 0.9 (0.9-2) Lipase 84 (73-393) U/L 05/08/20 05/08/20 Range/Units 01:44 01:53 WBC (4.8-10.8) K/uL RBC (4.7-6.1) M/uL Hgb (14.0-18.0) g/dL Hct (42-52) % MCV (80-100) fL MCH (25-34) pg MCHC (32-36) g/dL RDW Std Deviation (36.4-46.3) fL RDW Coeff of Jovan (11.5-14.5) % Plt Count (130-400) K/uL MPV (7.4-10.4) fL Immature Gran % (Auto) % Neut % (Auto) % Lymph % (Auto) % [place] % (Auto) % Eos % (Auto) % Baso % (Auto) % Neut # (Auto) (1.4-6.5) K/uL Lymph # (Auto) (1.2-3.4) K/uL [place] # (Auto) (0.11-0.59) K/uL Eos # (Auto) (0-0.5) K/uL Baso # (Auto) (0-0.2) K/uL Immature Gran # (Auto) (0.00-0.02) K/uL PT 10.6 INR 1.0 APTT 27.5 PTT Ratio 1.0 D-Dimer 560 H* Sodium (136-145) mmol/L Potassium 3.9 (3.5-5.1) mmol/L Chloride (98-107) mmol/L Carbon Dioxide (21-32) mmol/L Anion Gap (3-11) BUN (7-18) mg/dl Creatinine (0.6-1.4) mg/dl Est Cr Clr Drug Dosing ml/min Est GFR ( Amer) Est GFR (Non-Af Amer) BUN/Creatinine Ratio (10-20) Glucose (70-99) mg/dl Calcium (8.5-10.1) mg/dl Total Bilirubin (0.2-1) mg/dl AST 29 (15-37) U/L ALT (12-78) U/L Alkaline Phosphatase (45-117) U/L Troponin I (0-0.045) ng/ml Total Protein (6.4-8.2) gm/dl Albumin (3.4-5.0) gm/dl Globulin (2.5-4.0) gm/dl Albumin/Globulin Ratio (0.9-2) Lipase (73-393) U/L MDM Narrative Prior records/ancillary studies reviewed. Triage Nursing notes reviewed. Additional history obtained from nursing. The patient's history was concerning for chest pain. Differential diagnosis: Etiologies such as cardiac ischemia, aortic dissection, pulmonary embolism, pneumonia, pneumothorax, musculoskeletal, infections, pericarditis, myocarditis, esophageal rupture, gastrointestinal, as well as others were entertained. Physical examination: As above. ER treatment provided: An order was placed for continuous cardiac monitoring. The monitor shows a rate of 60-100 with a paced rhythm. Patient was observed On reassessment the patient felt better. Diagnostic interpretation by me: The electrocardiogram was negative for pathologic change. Atrial sensed ventricular paced rhythm, rate of 95, no acute ST-T wave changes, occasional PVC,. Impression atrial sensed ventricular paced rhythm interpreted by myself. EKG ordered for chest pain The labs revealed negative troponin Imaging studies: CTA CHEST: Mild/moderate right, mild left pleural effusion. Negative for pulmonary embolism. Cardiac pacer wires extending into the right heart and expected area of the coronary sinus. Please clinically correlate for positioning of leads. No acute lung findings. Bones are unremarkable. Radiologist: Primitivo Shine MD Chest x-ray with cardiomegaly unchanged with mild pleural effusions. Similar to prior x-ray. HEART SCORE: Hx: high/mod/low suspicion: 0 ECG: ST depression/nonspecific changes/normal: 0 Age: Greater than 65/45-64/less than 45: 1 Risk factors: (Hypertension, hyperlipidemia, diabetes, coronary disease, tobacco use, cocaine use): 2 Troponin: Greater than 2 times normal limits/1-2 times normal limits/normal: 0 Total: 3 Consultation: A consultation was placed with the hospitalist. The case was discussed and d iagnostics were reviewed. The patient was evaluated in the ER for further treatment. Exam and history seem consistent with ongoing chest pain and dyspnea. Heart score is low. Negative troponin. Patient is requesting admission. Medicine was consulted. He will be evaluated for possible admission. By the evaluation outlined above emergent etiologies such as aortic dissection, pulmonary embolism, pneumonia, pneumothorax, infections, pericarditis, myocarditis, gastrointestinal, as well as others were deemed relatively unlikely. The pt informed about the findings as listed above. All questions were answered and pleased with the treatment. The chart was completed utilizing [facility] Speech voice recognition software. Grammatical errors, random word insertions, pronoun errors, and incomplete sentences are an occassional consequence of this system due to software limitations, ambient noise, and hardware issues. Any formal questions or concerns about the content, text, or information contained within the body of this dictation should be directly addressed to the physician pharmaceutical assistant for clarification. Impression & Plan Chest pain Discharge Plan Visit Data Chief Complaint: Chest Pain Stated Complaint: HAVING TROUBLE BREATHING,CHEST PAIN ED Provider: Brittni Andrea ED Midlevel Provider: Deepali Avalos Discharge Problem: Chest pain Patient Disposition: Being Evaluated by Hospitalist Condition: Good Discharge Instructions Cecy/Other Patient Handouts: ED Chest Pain, Uncertain Cause Activity Restrictions/Additional Instructions: Forms Stand Alone Forms: Virtual Emergency Department, Important Visit Information Prescriptions Prescriptions: No Action carvedilol 25 mg tablet 25 mg PO BID Qty: 180 RF: 3 Soliqua 100/33 100 unit-33 mcg/mL insulin pen 55 units SQ QPM 90 Days Qty: 60 RF: 3 (DME) blood sugar diagnostic [OneTouch Ultra Blue Test Strip] Strip See Rx Instructions .ROUTE .MEDSUPPLY Qty: 600 RF: 3 Entresto 24-26 mg tablet 1 tab PO BID Qty: 180 RF: 3 atorvastatin [Lipitor] 20 mg tablet 20 mg PO DAILY Qty: 90 RF: 3 ergocalciferol (vitamin D2) 1,250 mcg (50,000 unit) capsule See Rx Instructions .ROUTE .COMPLEX Qty: 12 RF: 1 allopurinol 300 mg tablet 300 mg PO DAILY Qty: 90 RF: 3 insulin lispro [Humalog U-100 Insulin] 100 unit/mL solution 100 units SQ .COMPLEX RF: 0 spironolactone 25 mg tablet 25 mg PO DAILY Qty: 90 RF: 3 aspirin 81 mg Tablet,Delayed Release (Dr/Ec) 81 mg PO DAILY RF: 0 omeprazole magnesium [Prilosec OTC] 20 mg Tablet,Delayed Release (Dr/Ec) 20 mg PO DAILY PRN (Reason: Heartburn) RF: 0 magnesium 200 mg tablet 500 mg PO DAILY RF: 0 Referrals Referrals: Yamileth Garcia MD [Primary Care Provider] -
[2020-05-08 01:16] LABS: Basophils # (auto) 0.01 K/uL (0-0.2); Basophils % (auto) 0.1 %; Eosinophils # (auto) 0.09 K/uL (0-0.5); Eosinophils % (auto) 1.1 %; Hematocrit (blood only) 42.6 % (42-52); Hemoglobin 14.5 g/dL (14.0-18.0); Immature Granulocytes # (auto) 0.01 K/uL (0.00-0.02); Immature Granulocytes % (auto) 0.1 %; Lymphocytes % (auto) 19.6 %; Mean Corpuscular Hemoglobin 30.8 pg (25-34); Mean Corpuscular Volume 90.4 fL (80-100); Mean Platelet Volume 12.3 fL (7.4-10.4); Monocytes # (auto) 0.48 K/uL (0.11-0.59); Monocytes % (auto) 5.9 %; Neutrophils # (auto) 5.99 K/uL (1.4-6.5); Neutrophils % (auto) 73.2 %; Platelet Count 167 K/uL (130-400); RDW Coefficient of Variation 13.7 % (11.5-14.5); RDW Standard Deviation 44.8 fL (36.4-46.3); Red Blood Count 4.71 M/uL (4.7-6.1); White Blood Count 8.18 K/uL (4.8-10.8)
[2020-05-08 01:39] LABS: Albumin Globulin Ratio 0.9 (0.9-2); Albumin Level 3.6 gm/dl (3.4-5.0); BUN Creatinine Ratio 16.6 (10-20); Bilirubin,Total 1.3 mg/dl (0.2-1); Calcium 8.7 mg/dl (8.5-10.1); Creatinine Clr Calc Pharmacy 77.9 ml/min; Est GFR (African American) 60.5; Est GFR (Non-African American) 52.2; Globulin 3.8 gm/dl (2.5-4.0); Total Protein 7.4 gm/dl (6.4-8.2); Troponin I 0.015 ng/ml (0-0.045)
[2020-05-08 02:02] LABS: Potassium 3.9 mmol/L (3.5-5.1)
[2020-05-08 02:15] LABS: Partial Thromboplastin Time 27.5 Seconds (21.0-31.0); Prothrombin Time 10.6 Seconds (9.0-12.0)
[2020-05-08 02:17] LABS: D Dimer 560 ug/L FEU (0-500)
[2020-05-08] MEDS ORDERED: OPTIRAY 320 125ml IV ONE (02:35)
--- NOTE | 2020-05-08 03:59 | History & Physical Report ---
Date of Service May 08, 2020 Assessment & Plan (1) Chest pain: Patient with exertional chest discomfort, dyspnea, decreased exercise tolerance. EKG with no acute ischemic changes, Troponin=0.015. Elevated Ddimer at 560 with CTA negative for PE. 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 Patient follows with Cardiology and EP. Suspect some CHF - patient with bilateral LE edema, exertional dyspnea and chest discomfort possibly secondary to volume overload. He reports some PND and orthopnea, found to have bilateral effusions on CT imaging -Lasix 20mg IV x 1 -Monitor daily weights, strict I/Os -Continue home heart failure regimen - Carvedilol, Entresto and Spironolactone -Maintain electrolytes -Check 2D echocardiogram -Cardiology consultation appreciated Present on Admission?: Yes (3) Hypertension: Blood pressure stable at present -Continue Carvedilol, Entresto, Spironolactone as above -Continue to monitor Present on Admission?: Yes (4) Diabetes mellitus type 2, uncontrolled: Patient doing well, SC=285 at present. Last A1C=8.4 on 12/16/19 -Continue Lantus 55u qHS -ISS -Goal blood sugar 100 - 140 Present on Admission?: Yes (5) LEIGHA on CPAP: Chronic. Patient states he is compliant with CPAP -CPAP qHS Present on Admission?: Yes (6) Gout, joint: Chronic. Stable -Continue Allopurinol F/E/N - Heplock. Lasix x 1 dose as above. Electrolytes WNL. Heart healthy diet Ppx - Lovenox. 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 Patient was seen by his PCP on 05/02/20 with complaint of swelling in his neck - unremarkable findings during that encounter. States that he has been having difficulty sleeping for the last 3 nights, wakes up gasping for air. Also has some orthopnea. He reports exertional chest discomfort - substernal chest tightness and pressure that occurs with minimal exertion, relieved with rest. He has occasional palpitations and episodes of sweating. N o AICD discharges. Denies dizziness/syncope/weight gain. ER Course: Allergies Allergy/AdvReac Type Severity Reaction Status Date / Time bupropion [From Contrave] Allergy Unknown Unknown Verified 05/08/20 01:11 naltrexone [From Contrave] Allergy Unknown Unknown Verified 05/08/20 01:11 morphine AdvReac Unknown SHORTNESS Verified 05/08/20 01:11 OF BREATH IF DELIVERED FAST Home Medications Medication Instructions Recorded Confirmed Type aspirin 81 mg PO DAILY 03/14/18 05/08/20 History omeprazole magnesium [Prilosec OTC] 20 mg PO DAILY PRN 03/14/18 05/08/20 History carvedilol 25 mg tablet 25 mg PO BID #180 tab 10/27/19 05/08/20 Rx insulin lispro 100 unit/mL 100 units SQ .COMPLEX ml 12/24/19 05/08/20 History subcutaneous solution magnesium 200 mg tablet 500 mg PO DAILY tab 12/24/19 05/08/20 History insulin glargine 100 55 units SQ QPM 90 Days #60 ml 12/27/19 05/08/20 Rx unit-lixisenatide 33 mcg/mL subcutaneous pen Grid2020Touch Ultra Blue Test Strip #600 ea NS 01/04/20 05/03/20 Rx sacubitril 24 mg-valsartan 26 mg 1 tab PO BID #180 tab 01/07/20 05/08/20 Rx tablet atorvastatin 20 mg tablet 20 mg PO DAILY #90 tab 02/28/20 05/08/20 Rx ergocalciferol (vitamin D2) 1,250 See Rx Instructions .ROUTE 03/28/20 05/08/20 Rx mcg (50,000 unit) capsule .COMPLEX #12 capsule allopurinol 300 mg tablet 300 mg PO DAILY #90 tab 04/03/20 05/08/20 Rx spironolactone 25 mg tablet 25 mg PO DAILY #90 tab 11/18/20 11/23/20 Rx Past Med/Surg History Medical History (Updated 05/08/20 @ 04:25 by Isabelle Barton DO) Cardiomyopathy Chronic renal insufficiency Diabetes Gout, joint HTN (hypertension) Hypertension LEIGHA on CPAP Surgical History History of permanent cardiac pacemaker placement Family History Father Diabetes Lung cancer Social History Smoking Status: Never smoker Hx Alcohol Use: No Hx Substance Use: No Preferred Language: Georgian Communication Ability: Effective Visual Impairment: No Limitations Hearing Ability: Normal marital status: current occupational status: employed 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 Feels Safe at Home: Yes Seatbelt Use: always Review of Systems Review of Systems: All systems reviewed & are unremarkable except as noted in HPI & below Patient denies fevers/chills/cough/loss of taste or smell No Covid-19 contacts Physical Exam Physical Exam: General: patient resting comfortably, NAD, non-toxic in appearance, AA&O x 4 Skin: warm, dry, intact, no rashes or lesions HEENT: NC/AT, PERRL, EOMI, anicteric sclera, conjunctiva without injection, external ear normal to inspection and nontender, nares patent, moist mucus membranes, dentition intact, no oropharyngeal lesions, neck supple, trachea midline, no LAD, no thyromegaly, no JVD Heart: +S1/S2, regular with frequent ectopy, no m/r/g, no chest wall tenderness Lungs: equal air entry bilaterally, no rales/rhonchi/wheezes Abd: +BS, soft, NT/ND, no masses/organomegaly/ascites Ext: warm, 2+ pulses in UE/LE bilaterally, no clubbing/cyanosis, 2+ pitting edema to knees Neuro: nonfocal, patient AA&O x 4, speech intact, no facial droop, moving all extremities on command with equal strength 5/5 Results & Data Results & Data (MN) Vital Signs (Past 12 Hours) Vital Signs Temp Pulse Pulse Resp BP BP Pulse Ox 05/08/20 02:35 92 H 20 132/90 98 05/08/20 01:21 92 H 20 137/96 98 05/08/20 01:09 98 05/08/20 01:03 36.9 C 91 H 20 125/106 H 98 Laboratory Results Lab Results 05/08/20 05/08/20 05/08/20 Range/Units 01:07 01:07 01:07 WBC 8.18 (4.8-10.8) K/uL RBC 4.71 (4.7-6.1) M/uL Hgb 14.5 (14.0-18.0) g/dL Hct 42.6 (42-52) % MCV 90.4 (80-100) fL MCH 30.8 (25-34) pg MCHC 34.0 (32-36) g/dL RDW Std Deviation 44.8 (36.4-46.3) fL RDW Coeff of Jovan 13.7 (11.5-14.5) % Plt Count 167 (130-400) K/uL MPV 12.3 H (7.4-10.4) fL Immature Gran % (Auto) 0.1 % Neut % (Auto) 73.2 % Lymph % (Auto) 19.6 % [place] % (Auto) 5.9 % Eos % (Auto) 1.1 % Baso % (Auto) 0.1 % Neut # (Auto) 5.99 (1.4-6.5) K/uL Lymph # (Auto) 1.60 (1.2-3.4) K/uL [place] # (Auto) 0.48 (0.11-0.59) K/uL Eos # (Auto) 0.09 (0-0.5) K/uL Baso # (Auto) 0.01 (0-0.2) K/uL Immature Gran # (Auto) 0.01 (0.00-0.02) K/uL PT Cancelled INR Cancelled APTT Cancelled PTT Ratio Cancelled D-Dimer Cancelled Sodium 138 (136-145) mmol/L Potassium (3.5-5.1) mmol/L Chloride 109 H (98-107) mmol/L Carbon Dioxide 23 (21-32) mmol/L Anion Gap 6.0 (3-11) BUN 26 H (7-18) mg/dl Creatinine 1.55 H (0.6-1.4) mg/dl Est Cr Clr Drug Dosing 77.9 ml/min Est GFR ( Amer) 60.5 Est GFR (Non-Af Amer) 52.2 BUN/Creatinine Ratio 16.6 (10-20) Glucose 158 H (70-99) mg/dl Calcium 8.7 (8.5-10.1) mg/dl Total Bilirubin 1.3 H (0.2-1) mg/dl AST (15-37) U/L ALT 46 (12-78) U/L Alkaline Phosphatase 97 (45-117) U/L Troponin I 0.015 (0-0.045) ng/ml Total Protein 7.4 (6.4-8.2) gm/dl Albumin 3.6 (3.4-5.0) gm/dl Globulin 3.8 (2.5-4.0) gm/dl Albumin/Globulin Ratio 0.9 (0.9-2) Lipase 84 (73-393) U/L SARS-CoV-2 Ag (Rapid) (Negative) 05/08/20 05/08/20 05/08/20 Range/Units 01:44 01:53 Unknown WBC (4.8-10.8) K/uL RBC (4.7-6.1) M/uL Hgb (14.0-18.0) g/dL Hct (42-52) % MCV (80-100) fL MCH (25-34) pg MCHC (32-36) g/dL RDW Std Deviation (36.4-46.3) fL RDW Coeff of Jovan (11.5-14.5) % Plt Count (130-400) K/uL MPV (7.4-10.4) fL Immature Gran % (Auto) % Neut % (Auto) % Lymph % (Auto) % [place] % (Auto) % Eos % (Auto) % Baso % (Auto) % Neut # (Auto) (1.4-6.5) K/uL Lymph # (Auto) (1.2-3.4) K/uL [place] # (Auto) (0.11-0.59) K/uL Eos # (Auto) (0-0.5) K/uL Baso # (Auto) (0-0.2) K/uL Immature Gran # (Auto) (0.00-0.02) K/uL PT 10.6 INR 1.0 APTT 27.5 PTT Ratio 1.0 D-Dimer 560 H* Sodium (136-145) mmol/L Potassium 3.9 (3.5-5.1) mmol/L Chloride (98-107) mmol/L Carbon Dioxide (21-32) mmol/L Anion Gap (3-11) BUN (7-18) mg/dl Creatinine (0.6-1.4) mg/dl Est Cr Clr Drug Dosing ml/min Est GFR ( Amer) Est GFR (Non-Af Amer) BUN/Creatinine Ratio (10-20) Glucose (70-99) mg/dl Calcium (8.5-10.1) mg/dl Total Bilirubin (0.2-1) mg/dl AST 29 (15-37) U/L ALT (12-78) U/L Alkaline Phosphatase (45-117) U/L Troponin I (0-0.045) ng/ml Total Protein (6.4-8.2) gm/dl Albumin (3.4-5.0) gm/dl Globulin (2.5-4.0) gm/dl Albumin/Globulin Ratio (0.9-2) Lipase (73-393) U/L SARS-CoV-2 Ag (Rapid) Negative (Negative) Diagnostic Findings CTA CHEST: Mild/moderate right, mild left pleural effusion. Negative for pulmonary embolism. Cardiac pacer wires extending into the right heart and expected area of the coronary sinus. Please clinically correlate for positioning of leads. No acute lung findings. Bones are unremarkable. Radiologist: Primitivo Shine MD ECG Additional Comments: V paced with ectopic beats, no acute ischemic changes, CA=531, QNV=378, XSt=710 Code Status & VTE Plan VTE Prophylaxis Plan VTE Prophylaxis will be ordered: Yes PG Care Time/CCT Total # of Minutes Spent Total Time Spent with Patient: Total time spent is greater than 50% in coordination of care (as documented) at patient's floor/unit and/or counseling patient: Coding Level of Care Code 08264 OBS Care - Level 3 Diagnoses Chest pain R07.9 Chest pain type: unspecified Chronic systolic (congestive) heart failure I50.22 Hypertension I10 Hypertension type: essential hypertension Diabetes mellitus type 2, uncontrolled E11.65 LEIGHA on CPAP G47.33; Z99.89 Gout, joint M10.9 (1) Chest pain Chest pain type: unspecified Qualified Code(s): R07.9 - Chest pain, unspecified (2) Hypertension Hypertension type: essential hypertension Qualified Code(s): I10 - Essential (primary) hypertension
[2020-05-08] MEDS ORDERED: GLUCAGON FOR INJ 1 MG VIAL SQ PRN (04:49)
[2020-05-08] MEDS ORDERED: DEXTROSE 50% 50 ML SYRINGE IV PRN (04:49)
[2020-05-08] MEDS ORDERED: CARBOHYDRATES FOR HYPOGLYCEMIA PO PRN (04:49)
[2020-05-08] MEDS ORDERED: GLUCOSE 10 TABS/TUBE PO PRN (04:49)
[2020-05-08] MEDS ORDERED: GLUCOSE 40% GEL 15 GM TUBE PO PRN (04:49)
[2020-05-08] MEDS ORDERED: FUROSEMIDE 20 MG in SYRINGE 0 ML IV ONE (05:15)
[2020-05-08 05:43] LABS: Magnesium 1.8 mg/dl (1.8-2.4); Phosphorus 3.5 mg/dl (2.5-4.9)
--- NOTE | 2020-05-08 06:32 | XRay Report ---
XR chest 1V portable HISTORY: 49 years-old Male Chest Pain acute atypical chest pain COMPARISON: CT chest of same day, chest radiograph 03/14/2018 TECHNIQUE: Portable AP view of the chest FINDINGS: Cardiac silhouette is enlarged. Left subclavian pacer/AICD. There is no pneumothorax. Pulmonary vascu lar congestion and mild interstitial coarsening with small pleural effusions. No airspace consolidati on typical for pneumonia. No pneumothorax. Bones appear grossly intact. IMPRESSION: 1. Cardiomegaly with mild pulmonary edema. 2. Small pleural effusions. ACT 112: Negative or not required by law. The above report was generated using voice recognition software. It may contain grammatical, syntax o r spelling errors. Electronically signed by: Ganga Cohn M.D. 05/08/2020 6:31 AM
--- NOTE | 2020-05-08 07:20 | CT Scan Report ---
CT angio chest PE protocol CT DOSE: 941.98 mGy.cm HISTORY: 49 years-old Male with PE. Acute shortness of breath with cough TECHNIQUE: Multiple CTA images of the chest were obtained after the intravenous administration of 119 ml Optiray 320. Coronal and sagittal MIPS were obtained from the axial data set and were submitted for review. All measurements were obtained according to NASCET criteria. A dose lowering technique w as utilized adhering to the principles of ALARA. COMPARISON: Chest radiograph of same day, CTA chest 03/14/2018 FINDINGS: CTA: Moderate cardiomegaly with small pericardial effusion. Dual lead left subclavian pacer/AICD is redemo nstrated with lead overlying the right ventricle and coronary sinus distribution, [facility] The left heart structures are not well opacified secondary to contrast bolus timing and there fore not well evaluated. No thoracic aortic aneurysm. Dilated main pulmonary artery, 3.[address] underlying pulmonary artery hypertension. The pulmonary arterial tree is opacified to the level of the proximal subsegmental branches and demonstrates no filling defects to suggest thromboembolic dis ease. CT CHEST: Unremarkable thyroid. Mildly prominent subcarinal and hilar lymph nodes are likely on a physiologic/r eactive basis. Small pleural effusions. Mild intralobular septal thickening. Mild bibasilar groundgla ss densities suggestive of atelectasis with areas of air trapping. No airspace consolidation typical for pneumonia. No suspicious pulmonary nodules or masses. Central airways are patent. No acute process of the imaged upper abdomen. Hepatic steatosis. Mild gynecomastia. Unremarkable soft tissues. Bones appear intact. IMPRESSION: 1. No evidence of pulmonary thromboembolic disease. 2. Cardiomegaly with pulmonary edema, small pleural and pericardial effusions. 3. No airspace consolidation typical for pneumonia. 4. Mild bibasilar atelectasis with air trapping. 5. Hepatic steatosis. ACT 112: Negative or not required by law. The above report was generated using voice recognition software. It may contain grammatical, syntax o r spelling errors. Electronically signed by: Ganga Cohn M.D. 05/08/2020 7:19 AM
[2020-05-08] MEDS: ATORVASTATIN 20 MG TAB PO SCH (08:02)
[2020-05-08] MEDS: allopurinoL 300 MG TAB PO SCH (08:03)
[2020-05-08] MEDS: SPIRONOLACTONE 25 MG TAB PO SCH (08:03)
[2020-05-08] MEDS: carvediloL 25 MG TAB PO SCH ×2 (08:03→20:38)
[2020-05-08] MEDS: SACUBITRIL-VALSARTAN 24-26 MG TAB PO SCH ×2 (08:03→20:38)
[2020-05-08] MEDS: ASPIRIN 81 MG ECTAB PO SCH (08:04)
[2020-05-08] MEDS: MAGNESIUM OXIDE 400 MG TAB PO SCH (08:04)
[2020-05-08] MEDS: INSULIN ASPART 100 UNITS/ML 3 ML PEN SC SCH ×4 (08:05→20:41)
[2020-05-08] MEDS: ENOXAPARIN INJ 40 MG/0.4 ML SYR SQ SCH ×2 (08:07→20:37)
[2020-05-08] MEDS ORDERED: FAMOTIDINE 40 MG TABLET PO ONE (11:01)
--- NOTE | 2020-05-08 11:01 | XCELERA ---
[id number]
[2020-05-08] MEDS: PANTOprazole 40 MG TAB PO SCH (12:18)
--- NOTE | 2020-05-08 13:13 | Cardiology Consultation ---
Date of Consultation May 08, 2020 Assessment & Plan (1) Acute on chronic systolic (congestive) heart failure: (2) Cardiomyopathy: (3) Biventricular ICD (implantable cardioverter-defibrillator) in place: (4) Hypertension: (5) Pericardial effusion: (6) Mitral regurgitation: (7) Chest pain: (8) Pulmonary hypertension: ASSESSMENT/PLAN: 1. Acute on chronic systolic CHF: He appears hypervolemic. He has already improved from a symptomatic standpoint with loop diuretic. Will adjust Lasix for a standing order of Lasix 20 mg IV b.i.d. which can be titrated if necessary. Strict I&Os recommended. Daily weights. Low-sodium diet, less than 2000 mg daily. Enroll in heart failure program. He may require loop diuretic on discharge versus p.r.n. usage. 2. Cardiomyopathy: Nonischemic, thought to be due to viral myocarditis in the past. Continue carvedilol 25 mg twice daily. Recommend titrating Entresto but will first attempt further diuresis as above. Continue spironolactone. 3. Biventricular ICD: Follows with Dr. Ronquillo. 4. Nonsustained ventricular tachycardia: Followed by EP. Continue beta- alesha. No acute issues. 5. Pericardial effusion: May be due to hypervolemia. Can repeat echo in the future to ensure stability or improvement. 6. Pulmonary hypertension: Likely multifactorial, including left heart failure and sleep apnea. Can monitor in the future with repeat echo. 7. Mitral regurgitation: Non severe. Stable. 8. Hypertension: Blood pressure mostly normotensive with intermittent mild hypotension. Continue current regimen. 9. Chest pain: Likely due to increased filling pressures/heart failure. Symptoms have resolved with initial diuresis. Troponins have remained negative. Continue to reassess throughout the hospital stay. No urgent indication for cardiac catheterization. No evidence for ischemic heart disease as the etiolo gy. 10. Disposition: Cardiology will continue to follow. Patient care communicated with Dr. Eller of the primary hospitalist service. Highly complex medical issues. Thank you for allowing me to participate in the care of your patient. Please call for any other questions or concerns. Sincerely, Bebeto Haas M.D. History of Present Illness Reason for Consultation: Exertional dyspnea and chest pain Requesting Physician: Dr. Barton Attending Physician: Savage Eller, History of Present Illness Mr. Francis is a pleasant 49-year-old gentleman with a history significant for nonischemic cardiomyopathy (presumed viral myocarditis), chronic systolic CHF, paroxysmal ventricular tachycardia, biventricular ICD, type 2 diabetes, hypertension, sleep apnea on CPAP, dyslipidemia, and type 2 diabetes. 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 Ronquillo. He recalls being diagnosed with cardiomyopathy at the age of 27. Presumed etiology has been viral myocarditis. He has a biventricular ICD in place and has been shocked in the past but none recently. Paroxysmal, nonsustained ventricular tachycardia has been reported with interrogation of his device. He recalls being admitted approximately 1.5 years ago with heart failure, improving with diuretic. As an outpatient, he has not required loop diuretic, but is compliant with spironolactone. In the past he was on lisinopril but is now on low-dose Entresto. He states that a dosage increase was recently done but he has not yet started taking the increased dose. He thinks that he felt better on lisinopril and that Entresto is causing shortness of breath and swelling. He admits that he does eat some food that is high in sodium content, but not often. He does not weigh himself at home on a regular basis. Over the past for 5 days, he has had worsening orthopnea and paroxysmal nocturnal dyspnea. He also has noted dyspnea with exertion. He had not noted any swelling but reports that nursing staff has told him that his legs are swollen. He also developed a substernal chest pressure/tightness that occurs with exertion, even with short distances such as walking in his hospital room to the restroom. The chest discomfort has resolved after some diuresis. His breathing has significantly improved. Unfortunately, there are no documented I&Os to calculated fluid balance. He has not undergone a cardiac catheterization. He denies syncope, near- syncope, palpitations, or bleeding such as melena, hematochezia, or hematuria. Review of systems: As above. Review of systems otherwise n egative/unremarkable. Family history: No known premature CAD in first-degree relatives. Father with emphysema at age of 63. Social history: He denies tobacco, alcohol, or drug abuse. He lives alone. He is . He has a son who lives in [place]. Two grandchildren. 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 He was unaccompanied in his hospital room. Allergies Allergy/AdvReac Type Severity Reaction Status Date / Time bupropion [From Contrave] Allergy Unknown Unknown Verified 05/08/20 01:11 naltrexone [From Contrave] Allergy Unknown Unknown Verified 05/08/20 01:11 morphine AdvReac Unknown SHORTNESS Verified 05/08/20 01:11 OF BREATH IF DELIVERED FAST Home Medications Medication Instructions Recorded Confirmed Type aspirin 81 mg PO DAILY 03/14/18 05/08/20 History omeprazole magnesium [Prilosec OTC] 20 mg PO DAILY PRN 03/14/18 05/08/20 History carvedilol 25 mg tablet 25 mg PO BID #180 tab 10/27/19 05/08/20 Rx insulin lispro 100 unit/mL 100 units SQ .COMPLEX ml 12/24/19 05/08/20 History subcutaneous solution magnesium 200 mg tablet 500 mg PO DAILY tab 12/24/19 05/08/20 History insulin glargine 100 55 units SQ QPM 90 Days #60 ml 12/27/19 05/08/20 Rx unit-lixisenatide 33 mcg/mL subcutaneous pen [employer] Ultra Blue Test Strip #600 ea NS 01/04/20 05/03/20 Rx sacubitril 24 mg-valsartan 26 mg 1 tab PO BID #180 tab 01/07/20 05/08/20 Rx tablet atorvastatin 20 mg tablet 20 mg PO DAILY #90 tab 02/28/20 05/08/20 Rx ergocalciferol (vitamin D2) 1,250 See Rx Instructions .ROUTE 03/28/20 05/08/20 Rx mcg (50,000 unit) capsule .COMPLEX #12 capsule allopurinol 300 mg tablet 300 mg PO DAILY #90 tab 04/03/20 05/08/20 Rx spironolactone 25 mg tablet 25 mg PO DAILY #90 tab 05/03/20 05/08/20 Rx Patient History Medical History (Updated 05/08/20 @ 13:35 by Case Haas MD) Biventricular ICD (implantable cardioverter-defibrillator) in place Cardiomyopathy Chronic renal insufficiency Diabetes Diabetes mellitus type 2, uncontrolled Diabetic nephropathy associated with type 2 diabetes mellitus Gout, joint HTN (hypertension) Hypertension Mitral regurgitation LEIGHA on CPAP Ventricular tachycardia (03/11/11) Family History Father Diabetes Lung cancer Social History Smoking Status: Never smoker Second Hand Exposure: No; Hx Alcohol Use: Yes Alcohol type: beer Hx Substance Use: No Preferred Language: Turkish Communication Ability: Effective Visual Impairment: No Limitations Hearing Ability: Normal Subject Scientific Research Required: No Beliefs That Will Affect Care: Nondenominational marital status: Current Living Situation: Alone current occupational status: employed 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 Alert and oriented. HEENT: Anicteric sclera. Neck: Thick neck. No bruits. Normal carotid upstrokes bilaterally. Cardiac: PMI was nonpalpable. No ventricular heave. Regular rate and rhythm. Normal S1-S2. No murmurs, rubs, or gallops. Pulmonary: Clear to auscultation bilaterally without wheezes, rales, or rhonchi. Abdomen: Soft, nontender, nondistended, with normoactive bowel sounds. No bruits noted. Extremities: 2+ radial pulses bilaterally. 2+ posterior tibialis pulses bilaterally. 1+ bilateral lower extremity edema. No cyanosis. Psychiatric: Affect appears appropriate. Results & Data ([facility]) Vital Signs (Past 12 Hours) Vital Signs Temp Pulse Pulse Resp BP BP Pulse Ox 05/08/20 11:00 37.0 C 71 18 98/64 L 98 05/08/20 10:39 73 05/08/20 07:46 36.6 C 88 18 130/78 98 05/08/20 04:45 36.3 C L 94 H 20 136/85 94 05/08/20 04:00 94 H 18 130/95 96 05/08/20 02:35 92 H 20 132/90 98 05/08/20 01:21 92 H 20 137/96 98 05/08/20 01:09 98 05/08/20 01:03 36.9 C 91 H 20 125/106 H 98 Intake & Output 05/06/20 05/07/20 05/08/20 05/09/20 06:59 06:59 06:59 06:59 Weight 126.4 kg Laboratory Results Laboratory Results - last 24 hr 05/08/20 05/08/20 05/08/20 01:07 01:07 01:07 WBC 8.18 RBC 4.71 Hgb 14.5 Hct 42.6 MCV 90.4 MCH 30.8 MCHC 34.0 RDW Std Deviation 44.8 RDW Coeff of Jovan 13.7 Plt Count 167 MPV 12.3 H Immature Gran % (Auto) 0.1 Neut % (Auto) 73.2 Lymph % (Auto) 19.6 [place] % (Auto) 5.9 Eos % (Auto) 1.1 Baso % (Auto) 0.1 Neut # (Auto) 5.99 Lymph # (Auto) 1.60 [place] # (Auto) 0.48 Eos # (Auto) 0.09 Baso # (Auto) 0.01 Immature Gran # (Auto) 0.01 PT Cancelled INR Cancelled APTT Cancelled PTT Ratio Cancelled D-Dimer Cancelled Sodium 138 Potassium Chloride 109 H Carbon Dioxide 23 Anion Gap 6.0 BUN 26 H Creatinine 1.55 H Est Cr Clr Drug Dosing 77.9 Est GFR ( Amer) 60.5 Est GFR (Non-Af Amer) 52.2 BUN/Creatinine Ratio 16.6 Glucose 158 H POC Glucose Calcium 8.7 Phosphorus Magnesium Total Bilirubin 1.3 H AST ALT 46 Alkaline Phosphatase 97 Troponin I 0.015 NT-Pro-B Natriuret Pep Total Protein 7.4 Albumin 3.6 Globulin 3.8 Albumin/Globulin Ratio 0.9 Lipase 84 SARS-CoV-2 Ag (Rapid) 05/08/20 05/08/20 05/08/20 01:44 01:53 04:56 WBC RBC Hgb Hct MCV MCH MCHC RDW Std Deviation RDW Coeff of Jovan Plt Count MPV Immature Gran % (Auto) Neut % (Auto) Lymph % (Auto) [place] % (Auto) Eos % (Auto) Baso % (Auto) Neut # (Auto) Lymph # (Auto) [place] # (Auto) Eos # (Auto) Baso # (Auto) Immature Gran # (Auto) PT 10.6 INR 1.0 APTT 27.5 PTT Ratio 1.0 D-Dimer 560 H* Sodium Potassium 3.9 Chloride Carbon Dioxide Anion Gap BUN Creatinine Est Cr Clr Drug Dosing Est GFR ( Amer) Est GFR (Non-Af Amer) BUN/Creatinine Ratio Glucose POC Glucose Calcium Phosphorus 3.5 Magnesium 1.8 Total Bilirubin AST 29 ALT Alkaline Phosphatase Troponin I NT-Pro-B Natriuret Pep 1586 H Total Protein Albumin Globulin Albumin/Globulin Ratio Lipase SARS-CoV-2 Ag (Rapid) 05/08/20 05/08/20 05/08/20 07:31 07:33 11:39 WBC RBC Hgb Hct MCV MCH MCHC RDW Std Deviation RDW Coeff of Jovan Plt Count MPV Immature Gran % (Auto) Neut % (Auto) Lymph % (Auto) [place] % (Auto) Eos % (Auto) Baso % (Auto) Neut # (Auto) Lymph # (Auto) [place] # (Auto) Eos # (Auto) Baso # (Auto) Immature Gran # (Auto) PT INR APTT PTT Ratio D-Dimer Sodium Potassium Chloride Carbon Dioxide Anion Gap BUN Creatinine Est Cr Clr Drug Dosing Est GFR ( Amer) Est GFR (Non-Af Amer) BUN/Creatinine Ratio Glucose POC Glucose 157 H 247 H Calcium Phosphorus Magnesium Total Bilirubin AST ALT Alkaline Phosphatase Troponin I 0.023 NT-Pro-B Natriuret Pep Total Protein Albumin Globulin Albumin/Globulin Ratio Lipase SARS-CoV-2 Ag (Rapid) 05/08/20 Unknown WBC RBC Hgb Hct MCV MCH MCHC RDW Std Deviation RDW Coeff of Jovan Plt Count MPV Immature Gran % (Auto) Neut % (Auto) Lymph % (Auto) [place] % (Auto) Eos % (Auto) Baso % (Auto) Neut # (Auto) Lymph # (Auto) [place] # (Auto) Eos # (Auto) Baso # (Auto) Immature Gran # (Auto) PT INR APTT PTT Ratio D-Dimer Sodium Potassium Chloride Carbon Dioxide Anion Gap BUN Creatinine Est Cr Clr Drug Dosing Est GFR ( Amer) Est GFR (Non-Af Amer) BUN/Creatinine Ratio Glucose POC Glucose Calcium Phosphorus Magnesium Total Bilirubin AST ALT Alkaline Phosphatase Troponin I NT-Pro-B Natriuret Pep Total Protein Albumin Globulin Albumin/Globulin Ratio Lipase SARS-CoV-2 Ag (Rapid) Negative Diagnostic Findings Telemetry personally reviewed: Sinus rhythm with atrial sensing and ventricular pacing. ECG personally reviewed: ECG 05/08/2020: Sinus rhythm with ventricular pacing 95 beats per minute. Echo 05/08/2020: Severely dilated LV with severely reduced systolic function. EF 20-25%. Large area of apical akinesis. Otherwise, global hypokinesis. Tissue Doppler suggests elevated left atrial pressure. Mildly dilated RV with normal systolic function. Severe left atrial dilation. Moderate MR. Small pericardial effusion. CTA chest 05/08/2020: No PE. Cardiomegaly with pulmonary edema. Small pleural and pericardial effusions. Medications Administered Current Inpatient Medications Allopurinol (Allopurinol 300 Mg Tab) 300 mg PO DAILY JOYCE Stop: 06/07/20 08:59 Last Admin: 05/08/20 08:03 Dose: 300 mg Documented by: Aspirin (Aspirin 81 Mg Ectab) 81 mg PO DAILY JOYCE Stop: 06/07/20 08:59 Last Admin: 05/08/20 08:04 Dose: 81 mg Documented by: Atorvastatin Calcium (Atorvastatin 20 Mg Tab) 20 mg PO DAILY JOYCE Stop: 06/07/20 08:59 Last Admin: 05/08/20 08:02 Dose: 20 mg Documented by: Carvedilol (Carvedilol 25 Mg Tab) 25 mg PO BID JOYCE Stop: 06/07/20 08:59 Last Admin: 05/08/20 08:03 Dose: 25 mg Documented by: Dextrose (Dextrose 50% 50 Ml Syringe) 25 - 50 ml IV UD PRN; Protocol PRN Reason: Hypoglycemia Protocol Stop: 06/07/20 04:48 Enoxaparin Sodium (Enoxaparin Inj 40 Mg/0.4 Ml Syr) 40 mg SQ Q12H JOYCE Stop: 06/07/20 07:59 Last Admin: 05/08/20 08:07 Dose: 40 mg Documented by: Glucagon (Glucagon For Inj 1 Mg Vial) 1 mg SQ UD PRN; Protocol PRN Reason: Hypoglycemia Protocol Stop: 06/07/20 04:48 Glucose (Glucose 10 Tabs/Tube) 4 - 8 tabs PO UD PRN; Protocol PRN Reason: Hypoglycemia Protocol Stop: 06/07/20 04:48 Glucose (Glucose 40% Gel 15 Gm Tube) 15 - 30 gm PO UD PRN; Protocol PRN Reason: Hypoglycemia Protocol Stop: 06/07/20 04:48 Furosemide 20 mg/ Syringe 2 mls @ 4 mls/min IV [id number] JOYCE Stop: 06/07/20 20:59 Insulin Aspart (Insulin Aspart 100 Units/Ml 3 Ml Pen) 0 units SC ACHS JOYCE Stop: 06/07/20 07:29 Last Admin: 05/08/20 12:18 Dose: 10 units Documented by: Insulin Glargine (Insulin Glargine Solostar 100 Units/Ml 3 Ml Pen) 55 units SC QPM JOYCE Stop: 06/07/20 20:59 Magnesium Oxide (Magnesium Oxide 400 Mg Tab) 400 mg PO DAILY JOYEC Stop: 06/07/20 08:59 Last Admin: 05/08/20 08:04 Dose: 400 mg Documented by: Miscellaneous (Carbohydrates For Hypoglycemia ) 15 - 30 gm PO UD PRN PRN Reason: Hypoglycemia Protocol Stop: 06/07/20 04:48 Pantoprazole Sodium (Pantoprazole 40 Mg Tab) 40 mg PO QAM JOYCE Stop: 06/07/20 11:14 Last Admin: 05/08/20 12:18 Dose: 40 mg Documented by: Sacubitril/Valsartan (Sacubitril-Valsartan 24-26 Mg Tab) 1 tab PO BID JOYCE Stop: 06/07/20 08:59 Last Admin: 05/08/20 08:03 Dose: Not Given Documented by: Spironolactone (Spironolactone 25 Mg Tab) 25 mg PO DAILY JOYCE Stop: 06/07/20 08:59 Last Admin: 05/08/20 08:03 Dose: 25 mg Documented by: PG Care Time/CCT Total # of Minutes Spent Total Time Spent with Patient: Total time spent is greater than 50% in coordination of care (as documented) at patient's floor/unit and/or counseling patient: Coding Level of Care Code 08648 Inpt Consult Level 5 Diagnoses Acute on chronic systolic (congestive) heart failure I50.23 Cardiomyopathy I42.9 Biventricular ICD (implantable cardioverter-defibrillator) in place Z95.810 Hypertension I10 Hypertension type: essential hypertension Pericardial effusion I31.3 Mitral regurgitation I34.0 Chest pain R07.9 Chest pain type: unspecified Pulmonary hypertension I27.20 (1) Hypertension Hypertension type: essential hypertension Qualified Code(s): I10 - Essential (primary) hypertension (2) Chest pain Chest pain type: unspecified Qualified Code(s): R07.9 - Chest pain, u nspecified
--- NOTE | 2020-05-08 15:13 | Hospitalist Progress Note ---
Date of Service May 08, 2020 Assessment & Plan (1) Chest pain: Patient with exertional chest discomfort, dyspnea, decreased exercise tolerance. EKG with no acute ischemic changes, Troponin normal x 3. Elevated Ddimer at 560 with CTA negative for PE. ?mild volume overload - acute CHF as etiology of exertional complaints -Echo with decreased EF 25% and akinesis/hypokinesis -Continue ASA and Atorvastatin -Cardiology consultation appreciated (2) Chronic systolic (congestive) heart failure: Patient with chronic systolic CHF, NICM secondary to presumed viral cardiomyopathy, BiV AICD in place. EF 25%. Patient follows with Cardiology and EP. Suspect some CHF - patient with bilateral LE edema, exertional dyspnea and chest discomfort possibly secondary to volume overload. BNP on admission was 1586. He reported some PND and orthopnea, found to have bilateral effusions on CT imaging -Lasix 20mg IV bid - loop diuretic vs prn for home -Monitor daily weights, strict I/Os -Continue home heart failure regimen - Carvedilol, Entresto and Spironolactone - cardiology recommends titrating Entresto but attempting diuresis further first -Cardiology consultation appreciated - enroll in heart failure program (3) Hypertension: Blood pressure stable at present -Continue Carvedilol, Entresto, Spironolactone as above -Continue to monitor (4) Diabetes mellitus type 2, uncontrolled: hyperglycemic today -Continue Lantus 55u qHS -ISS -Goal blood sugar 100 - 140 Pharmacy glycemic management (5) LEIGHA on CPAP: Chronic. Patient states he is compliant with CPAP -CPAP qHS (6) Pericardial effusion: Possibly due to volume overload. Will need follow up echo to ensure sta bility (7) Elevated serum creatinine: Creatinine 1.5 - near baseline. Avoid nephrotoxins where possible Follow labs while diuresing (8) Hepatic steatosis: As seen on CT Follow with pcp outpatient (9) Gout, joint: Chronic. Stable -Continue Allopurinol Ppx - Lovenox. Admission and Anticipated Discharge Date Admission Date: May 08, 2020 Subjective Feeling better today than yesterday. Some heartburn which is accompanied by burping, does not feel like the chest tightness he had on admission which he is no longer experiencing. No further sob. Review of Systems Constitutional: + sweats; no fever and no body aches Respiratory: no cough and no dyspnea Cardiovascular: no chest pain, no dyspnea at rest, no dyspnea on exertion, no palpitations and no lightheadedness Gastrointestinal: as per Subjective / HPI; no abdominal pain, no nausea and no vomiting Genitourinary: no dysuria and no urinary hesitancy Musculoskeletal: no back pain and no joint pain Integumentary: no rash Physical Exam Physical Exam: General: no distress Eyes: normal inspection, PERLL Respiratory: chest non tender, clear to auscultation, normal breath sounds, no respiratory distress, no accessory muscle use Cardiac: regular rate and rhythm, no rub or gallop, no murmur, no edema, no jvd GI/: active bowel sounds, no abd pain or tenderness, soft, non distended Extremities: normal range of motion, normal strength, non tender Neuro/Psych: alert and oriented x 3, normal mood and affect Skin: normal color, dry Results & Data Results & Data ([facility]) Vital Signs (Past 12 Hours) Vital Signs Temp Pulse Pulse Resp BP Pulse Ox 05/08/20 11:00 37.0 C 71 18 98/64 L 98 05/08/20 10:39 73 05/08/20 07:46 36.6 C 88 18 130/78 98 05/08/20 04:45 36.3 C L 94 H 20 136/85 94 05/08/20 04:00 94 H 18 130/95 96 PG Care Time/CCT Total # of Minutes Spent Total Time Spent with Patient: Total time spent is greater than 50% in coord ination of care (as documented) at patient's floor/unit and/or counseling patient: Coding Level of Care Code 73038 Subseq Hosp Care Lvl 3 Diagnoses Chest pain R07.9 Chest pain type: unspecified Chronic systolic (congestive) heart failure I50.22 Hypertension I10 Hypertension type: essential hypertension Diabetes mellitus type 2, uncontrolled E11.65 LEIGHA on CPAP G47.33; Z99.89 Pericardial effusion I31.3 Elevated serum creatinine R79.89 Hepatic steatosis K76.0 Gout, joint M10.9 (1) Chest pain Chest pain type: unspecified Qualified Code(s): R07.9 - Chest pain, unspecified (2) Hypertension Hypertension type: essential hypertension Qualified Code(s): I10 - Essential (primary) hypertension
[2020-05-08] MEDS ORDERED: PHARMACY GLYCEMIC MGMT CONSULT PRN (15:39)
--- NOTE | 2020-05-08 16:44 | Pharmacy Report ---
Glycemic Control Consultation - Date of Service May 08, 2020 - Scope Scope: Glycemic Pharmacist consulted for glycemic control and to write orders per [facility] inpatient glycemic control protocol. - Objective Weight: 126.4 kg Accuchecks BSG (last 24hrs): 05/08/20 05/08/20 05/08/20 01:07 07:33 11:39 Glucose 158 H POC Glucose 157 H 247 H 05/08/20 14:23 Glucose POC Glucose 246 H Laboratory Data (last 24hrs): 05/08/20 05/08/20 01:07 01:44 Potassium 3.9 Carbon Dioxide 23 Anion Gap 6.0 Creatinine 1.55 H Est Cr Clr Drug Dosing 77.9 - Recent Pertinent Medications Outpatient Anti-diabetic Regimen: * Soliqua 55 units SC qPM + Humalog SSI * A1c = pending The patient is currently receiving: * Basal insulin: Lantus 55 units every 24 hours * Correctional Insulin: Novolog Correction per scale ACHS Goal Range: Low 100 mg/dL - High 140 mg/dL Correction Factor: 18 mg/dL/unit * Prandial insulin: Per carb ratio of 1 unit per 8 grams CHO consumed Risk Factors for Insulin Resistance: * Diet: * T2DM - Assessment & Plan Assessment & Plan: ASSESSMENT: * 49 yo M admitted secondary to chest pain. Pharmacy was consulted this afternoon for inpatient glycemic management. * Fasting BSG upon admission was 157 mg/dL, acceptable. However, he did have post prandial hyperglycemia at lunchtime with a BSG of 247 mg/dL. * No expected changes in stressors at this point * Will tighten CF/CR with dinner given post prandial hyperglycemia * Will continue with Lantus 55 units this evening which matches his home dose. * A1c pending for the AM. PLAN FOR INPATIENT GLYCEMIC CONTROL: * Basal insulin * Lantus 55 units SC HS * Bolus insulin * NovoLog per scale ACHS or Q6hrs while NPO * Goal Range: Low 110 mg/dL - High 140 mg/dL * Correction Factor: 15 mg/dL/unit * Nutritional / Prandial insulin per carb ratio of 1 unit per 5 grams CHO consumed * Please note that the plan above was derived based on current level of insulin resistance and hospital stress. These recommendations are appropriate for inpatient admission only. Plan of care upon discharge will need to be reassessed to avoid potential outpatient hypo/hyperglycemia. Thank you.
[2020-05-08] MEDS ORDERED: FUROSEMIDE 20 MG in SYRINGE 0 ML IV SCH (21:00)
[2020-05-08] MEDS ORDERED: INSULIN GLARGINE SOLOSTAR 100 UNITS/ML 3 ML PEN SC SCH ×2 (21:00)
--- NOTE | 2020-05-09 05:39 | Electrocardiogram Report ---
Test Reason : Blood Pressure : / mmHG Vent. Rate : 095 BPM Atrial Rate : 095 BPM P-R Int : 162 ms QRS Dur : 182 ms QT Int : 438 ms P-R-T Axes : 025 -48 -44 degrees QTc Int : 550 ms Atrial-sensed ventricular-paced rhythm Abnormal ECG When compared with ECG of 14-MAR-2018 10:03, Vent. rate has decreased BY 19 BPM Confirmed by Case Haas ([id number]) on 05/09/2020 5:38:40 AM Referred By: Yamileth Robert Confirmed By:Case Haas
[2020-05-09 08:33] LABS: Hematocrit (blood only) 42.2 % (42-52); Hemoglobin 14.2 g/dL (14.0-18.0); Mean Corpuscular Hemoglobin 30.3 pg (25-34); Mean Corpuscular Hgb Conc 33.6 g/dL (32-36); Mean Corpuscular Volume 90.2 fL (80-100); Mean Platelet Volume 10.9 fL (7.4-10.4); Platelet Count 182 K/uL (130-400); RDW Coefficient of Variation 13.6 % (11.5-14.5); RDW Standard Deviation 44.7 fL (36.4-46.3); Red Blood Count 4.68 M/uL (4.7-6.1)
[2020-05-09] MEDS: INSULIN ASPART 100 UNITS/ML 3 ML PEN SC SCH ×2 (08:44→12:06)
[2020-05-09] MEDS: SACUBITRIL-VALSARTAN 24-26 MG TAB PO SCH (08:45)
[2020-05-09] MEDS: ENOXAPARIN INJ 40 MG/0.4 ML SYR SQ SCH (08:45)
[2020-05-09] MEDS: carvediloL 25 MG TAB PO SCH (08:45)
[2020-05-09] MEDS: SPIRONOLACTONE 25 MG TAB PO SCH (08:45)
[2020-05-09] MEDS: allopurinoL 300 MG TAB PO SCH (08:45)
[2020-05-09] MEDS: ASPIRIN 81 MG ECTAB PO SCH (08:46)
[2020-05-09] MEDS: ATORVASTATIN 20 MG TAB PO SCH (08:46)
[2020-05-09] MEDS: MAGNESIUM OXIDE 400 MG TAB PO SCH (08:46)
[2020-05-09] MEDS: PANTOprazole 40 MG TAB PO SCH (08:46)
[2020-05-09 08:49] LABS: Estimated Average Glucose 200 mg/dl; Hemoglobin A1C 8.6 % (4.5-5.6)
[2020-05-09 09:09] LABS: BUN Creatinine Ratio 15.8 (10-20); Calcium 9.7 mg/dl (8.5-10.1); Creatinine Clr Calc Pharmacy 82.4 ml/min; Est GFR (Non-African American) 56.1; Potassium 3.6 mmol/L (3.5-5.1)
--- NOTE | 2020-05-09 09:18 | Pharmacy Report ---
Pharmacy Glycemic Short Note 2 - Date of Service May 09, 2020 - Glycemic Short BSG Results (Last 24 hours): 05/08/20 05/08/20 05/08/20 11:39 14:23 16:41 Glucose POC Glucose 247 H 246 H 214 H 05/08/20 05/09/20 05/09/20 20:39 07:36 08:06 Glucose 146 H POC Glucose 188 H 154 H OUTPATIENT ANTIDIABETIC REGIMEN: * Soliqua (insulin glargine 100 unit - lixisenatide 33 mcg/mL) 55 units SC HS * Humalog TIDM per sliding scale (up to 100 units per day) * HbA1c of 8.6% (05/09/20) ASSESSMENT: * CW's BSGs yesterday of 157, 247, 214, and 188 mg/dL * Patient received 45 units of Lantus and 34 units of prandial/correctional yesterday (79 units total) * Fasting BSG of 154 mg/dL this morning - will plan to increase Lantus to 55 units this evening * Consider further Novolog tightening depending on lunch BSG PLAN FOR INPATIENT GLYCEMIC CONTROL: * Hold outpatient Soliqua * Basal insulin - increase * Lantus 55 units SQ HS * Bolus insulin - continue * NovoLog per scale ACHS or Q6hrs while NPO * Goal Range: Low 110 mg/dL - High 140 mg/dL * Correction Factor: 15 mg/dL/unit * Nutritional / Prandial insulin per carb ratio of 1 unit per 5 grams CHO consumed * Please note that the plan above was derived based on current level of insulin resistance and hospital stress. These recommendations are appropriate for inpatient admission only. Plan of care upon discharge will need to be reassessed to avoid potential outpatient hypo/hyperglycemia. Thank you.
--- NOTE | 2020-05-09 10:12 | Cardiology Progress Note ---
Date of Service May 09, 2020 Assessment & Plan (1) Acute on chronic systolic (congestive) heart failure: (2) Cardiomyopathy: (3) Biventricular ICD (implantable cardioverter-defibrillator) in place: (4) Hypertension: (5) Pericardial effusion: (6) Mitral regurgitation: (7) Chest pain: (8) Pulmonary hypertension: ASSESSMENT/PLAN: 1. Acute on chronic systolic CHF: Volume status much improved. Approaching euvolemia. Recommend Lasix 40 mg p.o. once daily on discharge. Strict I&Os recommended. Daily weights. Low-sodium diet, less than 2000 mg daily. Follow- up closely with heart failure program. 2. Cardiomyopathy: Nonischemic, thought to be due to viral myocarditis in the past. Continue carvedilol 25 mg twice daily. Recommend titrating Entresto to 49/51 mg twice daily. He has this new dose at home as per his primary fishing hand, Dr. Ronquillo. Continue spironolactone. 3. Biventricular ICD: Follows with Dr. Ronquillo. 4. Nonsustained ventricular tachycardia: Followed by EP. Continue beta- alesha. Brief nonsustained episode in the past 24 hours. Continue current care. 5. Pericardial effusion: May be due to hypervolemia. Can repeat echo in the future to ensure stability or improvement. 6. Pulmonary hypertension: Likely multifactorial, including left heart failure and sleep apnea. Can monitor in the future with repeat echo. 7. Mitral regurgitation: Non severe. Stable. 8. Hypertension: Blood pressure mildly hypotensive to normotensive. Continue current regimen. Systolic blood pressures of 90 or greater are acceptable with current heart failure therapy. 9. Chest pain: Likely due to increased filling pressures/heart failure as the symptoms have resolved with diuresis. 10. Disposition: Okay for discharge home this afternoon from a cardiology perspective. Close follow-up with heart failure program. Also follow-up with his primary fishing hand, Dr. Ronquillo. Patient care communicated with primary hospitalist service. Admission and Anticipated Discharge Date Admission Date: May 08, 2020 Subjective He was seen earlier this morning. He is 90% improved, nearly back to baseline. He no longer experiences dyspnea with exertion while walking in his room. He has not yet tried walking in the hallway. He denies shortness of breath at rest, orthopnea, chest pain, syncope, near-syncope, palpitations, or edema. He admits that he has noted significant diuresis with additional diuretic. He met with heart failure program, Rosalina Jauregui, earlier today. Review of systems: As above. Physical Exam Physical Exam: Gen.: No acute distress. Alert and oriented. HEENT: Anicteric sclera. Neck: Thick neck. Cardiac: PMI was nonpalpable. No ventricular heave. Regular. Normal S1-S2. No murmurs, rubs, or gallops. Pulmonary: Clear to auscultation bilaterally without wheezes, rales, or rhonchi. Abdomen: Soft, nontender, nondistended, with normoactive bowel sounds. No bruits noted. Extremities: 2+ radial pulses bilaterally. 2+ posterior tibialis pulses bilaterally. Minimal/trace bilateral lower extremity edema. No cyanosis. Psychiatric: Affect appears appropriate. Results & Data ([facility]) Vital Signs (Past 12 Hours) Vital Signs Temp Pulse Pulse Resp BP BP Pulse Ox 05/09/20 07:27 36.4 C L 85 16 101/64 94 05/09/20 03:30 71 18 97 05/09/20 03:07 36.6 C 67 16 92/56 L 95 05/09/20 01:25 84 05/08/20 23:17 36.9 C 81 16 105/67 98 Intake & Output 05/07/20 05/08/20 05/09/20 05/10/20 06:59 06:59 06:59 06:59 Intake Total 1515 / 1515 Output Total 3050 / 3050 Balance -1535 / -1535 Weight 126.4 kg 126 kg Laboratory Results Laboratory Results - last 24 hr 05/08/20 05/08/20 05/08/20 11:39 13:52 14:23 WBC RBC Hgb Hct MCV MCH MCHC RDW Std Deviation RDW Coeff of Jovan Plt Count MPV Sodium Potassium Chloride Carbon Dioxide Anion Gap BUN Creatinine Est Cr Clr Drug Dosing Est GFR ( Amer) Est GFR (Non-Af Amer) BUN/Creatinine Ratio Glucose POC Glucose 247 H 246 H Estimat Average Glucose Hemoglobin A1c Calcium Troponin I 0.019 05/08/20 05/08/20 05/09/20 16:41 20:39 07:36 WBC RBC Hgb Hct MCV MCH MCHC RDW Std Deviation RDW Coeff of Jovan Plt Count MPV Sodium Potassium Chloride Carbon Dioxide Anion Gap BUN Creatinine Est Cr Clr Drug Dosing Est GFR ( Amer) Est GFR (Non-Af Amer) BUN/Creatinine Ratio Glucose POC Glucose 214 H 188 H 154 H Estimat Average Glucose Hemoglobin A1c Calcium Troponin I 05/09/20 05/09/20 05/09/20 08:06 08:06 08:06 WBC 7.00 RBC 4.68 L Hgb 14.2 Hct 42.2 MCV 90.2 MCH 30.3 MCHC 33.6 RDW Std Deviation 44.7 RDW Coeff of Jovan 13.6 Plt Count 182 MPV 10.9 H Sodium 138 Potassium 3.6 Chloride 105 Carbon Dioxide 26 Anion Gap 7.0 BUN 23 H Creatinine 1.46 H Est Cr Clr Drug Dosing 82.4 Est GFR ( Amer) 65.0 Est GFR (Non-Af Amer) 56.1 BUN/Creatinine Ratio 15.8 Glucose 146 H POC Glucose Estimat Average Glucose 200 Hemoglobin A1c 8.6 H Calcium 9.7 Troponin I Diagnostic Findings Telemetry personally reviewed: Ventricular paced. One episode of nonsustained ventricular tachycardia lasting 5 beats in duration. Medications Administered Current Inpatient Medications Allopurinol (Allopurinol 300 Mg Tab) 300 mg PO DAILY JOYCE Stop: 06/07/20 08:59 Last Admin: 05/09/20 08:45 Dose: 300 mg Documented by: Aspirin (Aspirin 81 Mg Ectab) 81 mg PO DAILY JOYCE Stop: 06/07/20 08:59 Last Admin: 05/09/20 08:46 Dose: 81 mg Documented by: Atorvastatin Calcium (Atorvastatin 20 Mg Tab) 20 mg PO DAILY JOYCE Stop: 06/07/20 08:59 Last Admin: 05/09/20 08:46 Dose: 20 mg Documented by: Carvedilol (Carvedilol 25 Mg Tab) 25 mg PO BID JOYCE Stop: 06/07/20 08:59 Last Admin: 05/09/20 08:45 Dose: 25 mg Documented by: Dextrose (Dextrose 50% 50 Ml Syringe) 25 - 50 ml IV UD PRN; Protocol PRN Reason: Hypoglycemia Protocol Stop: 06/07/20 04:48 Enoxaparin Sodium (Enoxaparin Inj 40 Mg/0.4 Ml Syr) 40 mg SQ Q12H JOYCE Stop: 06/07/20 07:59 Last Admin: 05/09/20 08:45 Dose: 40 mg Documented by: Glucagon (Glucagon For Inj 1 Mg Vial) 1 mg SQ UD PRN; Protocol PRN Reason: Hypoglycemia Protocol Stop: 06/07/20 04:48 Glucose (Glucose 10 Tabs/Tube) 4 - 8 tabs PO UD PRN; Protocol PRN Reason: Hypoglycemia Protocol Stop: 06/07/20 04:48 Glucose (Glucose 40% Gel 15 Gm Tube) 15 - 30 gm PO UD PRN; Protocol PRN Reason: Hypoglycemia Protocol Stop: 06/07/20 04:48 Furosemide 20 mg/ Syringe 2 mls @ 4 mls/min IV BID17 [facility] Stop: 06/07/20 20:59 Last Admin: 05/08/20 20:39 Dose: 4 mls/min Documented by: Insulin Aspart (Insulin Aspart 100 Units/Ml 3 Ml Pen) 0 units SC ACHS [facility]; Protocol Stop: 06/07/20 07:29 Last Admin: 05/09/20 08:44 Dose: 7 units Documented by: Insulin Glargine (Insulin Glargine Solostar 100 Units/Ml 3 Ml Pen) 55 units SC QPM [facility]; Protocol Stop: 06/07/20 20:59 Magnesium Oxide (Magnesium Oxide 400 Mg Tab) 400 mg PO DAILY [facility] Stop: 06/07/20 08:59 Last Admin: 05/09/20 08:46 Dose: 400 mg Documented by: Miscellaneous (Carbohydrates For Hypoglycemia ) 15 - 30 gm PO UD PRN PRN Reason: Hypoglycemia Protocol Stop: 06/07/20 04:48 Miscellaneous Information (Pharmacy Glycemic Mgmt Consult) 1 ea N/A UD PRN PRN Reason: Consult Stop: 06/07/20 15:38 Pantoprazole Sodium (Pantoprazole 40 Mg Tab) 40 mg PO QAM [facility] Stop: 06/07/20 11:14 Last Admin: 05/09/20 08:46 Dose: 40 mg Documented by: Sacubitril/Valsartan (Sacubitril-Valsartan 24-26 Mg Tab) 1 tab PO BID [facility] Stop: 06/07/20 08:59 Last Admin: 05/09/20 08:45 Dose: 1 tab Documented by: Spironolactone (Spironolactone 25 Mg Tab) 25 mg PO DAILY [facility] Stop: 06/07/20 08:59 Last Admin: 11/24/20 08:45 Dose: 25 mg Documented by: PG Care Time/CCT Total # of Minutes Spent Total Time Spent with Patient: Total time spent is greater than 50% in coordination of care (as documented) at patient's floor/unit and/or counseling patient: Coding Level of Care Code 18747 Subseq Hosp Care Lvl 3 Diagnoses Acute on chronic systolic (congestive) heart failure I50.23 Cardiomyopathy I42.9 Biventricular ICD (implantable cardioverter-defibrillator) in place Z95.810 Hypertension I10 Hypertension type: essential hypertension Pericardial effusion I31.3 Mitral regurgitation I34.0 Chest pain R07.9 Chest pain type: unspecified Pulmonary hypertension I27.20 (1) Chest pain Chest pain type: unspecified Qualified Code(s): R07.9 - Chest pain, unspecified (2) Hypertension Hypertension type: essential hypertension Qualified Code(s): I10 - Essential (primary) hypertension
--- NOTE | 2020-05-09 12:25 | Heart Failure Progress Note ---
Date of Service May 09, 2020 Assessment & Plan (1) Acute on chronic systolic (congestive) heart failure: (2) Cardiomyopathy: (3) Biventricular ICD (implantable cardioverter-defibrillator) in place: (4) Pulmonary hypertension: (5) Mitral regurgitation: (6) LEIGHA on CPAP: (7) Obesity: (8) Paroxysmal atrial fibrillation: HF program was consulted during admission for discharge planning. We discussed the nature of heart failure and the goals of the program. Patient is agreeable to participation. Patient admits to poor CPAP compliance and dietary indiscretion prior to admission which may have contributed to his exacerbation. Patient is feeling symptomatically improved and appears euvolemic on exam. He is for potential discharge today. Patient was not previously requiring a home diuretic regimen. Recommend discharge with Lasix 40 mg po daily. Plan to repeat BMP, magnesium next week. Recommend daily standing weights. Notify HF program of 2+ lb weight gain overnight or 5+ lb weight gain in 1 week. Recommended low sodium diet, less than 2,000 mg daily. Patient admits he doesn't typically pay attention to his sodium intake. Anticipate further education as an outpatient. Continue guideline based medications including Carvedilol, Entresto, and Spironolactone. Cardiology previously recommended titration of Entresto. Patient has 49/51 mg supply at home. It was been recommended that he start this dose upon discharge. Disposition: Close follow up with the heart failure program for volume management and titration of GDMT. Scheduled for 05/16/20 at 10:30. Patient advised to call sooner for worsening symptoms. Admission and Anticipated Discharge Date Admission Date: May 08, 2020 Subjective Mr. Francis is a pleasant 49-year-old male with a history significant for nonischemic cardiomyopathy (EF 20-25%, presumed viral myocarditis), chronic systolic CHF, paroxysmal ventricular tachycardia, biventricular ICD, type 2 diabetes, hypertension, sleep apnea on CPAP, dyslipidemia. His primary security delivery specialist is Dr. Ronquillo. Results & Data ([facility]) Vital Signs (Past 12 Hours) Vital Signs Temp Pulse Pulse Resp BP BP Pulse Ox 05/09/20 11:38 97.7 F 77 16 99/65 L 96 05/09/20 10:12 68 05/09/20 07:27 97.5 F L 85 16 101/64 94 05/09/20 03:30 71 18 97 05/09/20 03:07 97.9 F 67 16 92/56 L 95 05/09/20 01:25 84 PG Care Time/CCT Total # of Minutes Spent Total Time Spent with Patient: Total time spent is greater than 50% in coordination of care (as documented) at patient's floor/unit and/or counseling patient: Heart Failure Data/Metrics Heart Failure Type: Systolic Ejection Fraction: 20-25% NYHA classification: II: Sx w/ usual activity Risk Stratification: B Dry Weight: 275 lb Weight: 277 lb Bi-V Defibrillator: Yes Diabetes Mellitus: Yes Evidenced Based Beta Enedina Therapy Beta Enedina Therapy: Yes Beta Enedina Name: Carvedilol Beta Enedina Target Therapy: Target Therapy CECIL/ARB/ARNI Therapy CECIL/ARB Therapy: Yes (Entresto 49/51mg BID) CECIL/ARB/ARNI Target Therapy: Not at Target Therapy Aldosterone Antagonist Therapy Aldosterone Antagonist Therapy: Yes (Spironolactone 25 mg daily) Coding Level of Care Code None Diagnoses Acute on chronic systolic (congestive) heart failure I50.23 Cardiomyopathy I42.9 Biventricular ICD (implantable cardioverter-defibrillator) in place Z95.810 Pulmonary hypertension I27.20 Mitral regurgitation I34.0 LEIGHA on CPAP G47.33; Z99.89 Obesity E66.9 Paroxysmal atrial fibrillation I48.0
--- NOTE | 2020-05-09 13:22 | Discharge Summary ---
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 Patient was seen by his PCP on 05/02/20 with complaint of swelling in his neck - unremarkable findings during that encounter. States that he has been having difficulty sleeping for the last 3 nights, wakes up gasping for air. Also has some orthopnea. He reports exertional chest discomfort - substernal chest tightness and pressure that occurs with minimal exertion, relie hari with rest. He has occasional palpitations and episodes of sweating. No AICD discharges. Denies dizziness/syncope/weight gain. ER Course: Principal Diagnosis Chest pain Discharge Exam Constitutional WD/WN, vitals as above Respiratory normal respiratory effort, lungs clear to auscultation Cardiovascular RRR, no murmur, no edema Gastrointestinal (Abdomen) normal bowel sounds, soft, nontender, no hepatosplenomegaly Musculoskeletal no cyanosis or clubbing, extremities motor strength 5/5 Skin no rashes, warm and dry Neurologic moves all extremities and awake Psychiatric A+Ox3, euthymic affect Discharge Data Allergies Allergy/AdvReac Type Severity Reaction Status Date / Time bupropion [From Contrave] Allergy Unknown Unknown Verified 05/08/20 01:11 naltrexone [From Contrave] Allergy Unknown Unknown Verified 05/08/20 01:11 morphine AdvReac Unknown SHORTNESS Verified 05/08/20 01:11 OF BREATH IF DELIVERED FAST Consultations 05/08/20 03:10 ED Decision to Admit Stat 05/08/20 04:49 Consult Cardiology Routine Ordered Studies 05/08/20 02:18 CT angio chest PE protocol Urgent Hospital Course (1) Chest pain: Patient with exertional chest discomfort, dyspnea, decreased exercise tolerance. EKG with no acute ischemic changes, Troponin normal x 3. Elevated Ddimer at 560 with CTA negative for PE. 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 EF 25%. BNP on admission was 1586. He reported some PND and orthopnea, found to have bilateral effusions on CT imaging -Lasix 20mg IV bid - will discharge with the addition of 40 mg daily Lasix -Monitor daily weights, strict I/Os -Continue home heart failure regimen - Carvedilol, Entresto and Spironolactone - cardiology recommends titrating Entresto up to previous discussed 49/51 dosing -Cardiology consultation appreciated - Enrolled in heart failure program (3) Hypertension: Mild -Continue Carvedilol, Entresto as above increased, Spironolactone as above (4) Diabetes mellitus type 2, uncontrolled: hyperglycemic today -Continue Lantus 55u qHS -ISS -Goal blood sugar 100 - 140 Pharmacy glycemic management Follow up with pcp as A1c is suboptimal at 8.6% 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 Patient should be encouraged to wear CPAP at night, per HF note, patient has had poor compliance -CPAP qHS (6) Pericardial effusion: Possibly due to volume overload. Will need follow up echo to ensure stability outpatient (7) Elevated serum creatinine: Creatinine 1.45 - near baseline. Avoid nephrotoxins where possible Follow labs while diuresing (8) Hepatic steatosis: As seen on CT. Discussed with patient and lifestyle interventions Follow with pcp outpatient (9) Non-sustained ventricular tachycardia: Brief asymptomatic episode. Continue beta alesha (10) Gout, joint: Chronic. Stable -Continue Allopurinol Ppx - Lovenox. Total Time Total Time Spent Total Time Spent (In Minutes): greater than 30 minutes Discharge Plan Discharge Items Patient Disposition: Home - Self-Care Reason For Visit: EXERTIONAL CHEST PAIN Discharge Diagnosis: Chest pain Condition on Discharge: Good Activity: Resume your previous activity Non-emergency contact: Primary Care Provider Call non-emergency contact if: you have any medication questions Follow-up/Referrals: Yamileth Garcia MD [Primary Care Provider] - Farzad Ronquillo MD [Physician] - (Follow up 2 weeks ) Rosalina Jauregui PA-C [Physician [facility]] - 05/16/20 10:30 am (Congestive Heart Failure Program Appointment Information Early follow up is essential to managing your heart failure. An appointment has been scheduled for you with the [facility] within 7 days of discharge. Anticipate this visit to be 30-60 minutes long. Please expect a learning coach phone call from one of our nurses approximately 48 hours from discharge. They will also be placing an order for lab work to be completed 1-2 days prior to your heart failure follow up appointment. Please be sure to have this done so we can go over the results when you come in. Office Location The cardiology office building is located in front of the hospital at [address] [facility]. Bring the following with you to your follow-up doctor appointments: Please bring your daily weight log any discharge paperwork all of your medication bottles with you to this visit. ) Diet: Heart Healthy and Low Sodium (2gm) Addtl Attending Provider Instructions: Chronic systolic (congestive) heart failure: -Continue home heart failure regimen - Carvedilol, Entresto (49mg/51mg), and Spironolactone and add furosemide 40 mg - Please take your blood pressure every day and keep a log. If you find that you are running lower than 90 for the top number consistently, please call Lina Jauregui or your personal financial planner. You should also call your personal financial planner if you find you are getting very lightheaded or dizzy. [place] the furosemide and the increase in the Entresto could potentially make you lightheaded due to drop in blood pressure so take your time going from laying to sitting to standing until you are used to the medications -You will follow up with Lina Jauregui PA-C from the Heart Failure Clinic Diabetes mellitus type 2, uncontrolled: -Continue home regimen but please follow up with your primary care provider concerning your A1c which was 8.6% which is a little higher than your last check and suboptimal. Hepatic steatosis (fatty liver) - incidental finding on CT scan. I have attached some infromation on interventions on lifestyle adjustments you can make to help this. Please follow up for further lifestyle counseling with your primary care provider Addtl Inseam Leveler Provider Instructions: Call your Primary Care doctor if any of the following symptoms or problems start or get worse: * Shortness of breath or difficulty breathing * Wake up at night short of breath * Chest pain * Cough * Swelling of your hands, feet, or legs * More fatigued or tired with your normal activity * Palpitations - sudden fast heart beats WEIGHT * Weigh yourself every morning after using the bathroom. * Use the same scale. * Wear the same amount of clothing. * Write your weight down on a chart. * Call your Primary Care doctor if you gain more than 2-3 pounds in 1-2 days. MEDICATIONS * Use this discharge instruction sheet for medication instructions. * Take your medications at the time your doctor ordered. * Do not skip a dose of your medicines. * If you miss a dose of medicine, take it as soon as possible, but DO NOT DOUBLE A DOSE. * Read your medicine information when you get home. * Know all of the side effects of your medicine. If in doubt, ask your pharmacist * Call your Primary Care doctor's office if you have any side effects. * Be sure all of your doctors know what medicine and herbs you take (including cold, flu, and herbal medicine). Take the following with you to your follow-up doctor appointments: * Weight Chart * Medication List * List of questions Do not drink excessive alcohol, beer or wine. Pending Studies at Discharge: No Stand-Alone Forms: [employer], Smoking Cessation Medications and DC Order Prescriptions: New Entresto 49-51 mg tablet 1 tab PO BID Qty: 30 RF: 0 furosemide 40 mg tablet 40 mg PO DAILY Qty: 30 RF: 1 Continued carvedilol 25 mg tablet 25 mg PO BID Qty: 180 RF: 3 Soliqua 100/33 100 unit-33 mcg/mL insulin pen 55 units SQ QPM 90 Days Qty: 60 RF: 3 (DME) blood sugar diagnostic [OneTouch Ultra Blue Test Strip] Strip See Rx Instructions .ROUTE .MEDSUPPLY Qty: 600 RF: 3 atorvastatin [Lipitor] 20 mg tablet 20 mg PO DAILY Qty: 90 RF: 3 ergocalciferol (vitamin D2) 1,250 mcg (50,000 unit) capsule See Rx Instructions .ROUTE .COMPLEX Qty: 12 RF: 1 allopurinol 300 mg tablet 300 mg PO DAILY Qty: 90 RF: 3 insulin lispro [Humalog U-100 Insulin] 100 unit/mL solution 100 units SQ .COMPLEX RF: 0 spironolactone 25 mg tablet 25 mg PO DAILY Qty: 90 RF: 3 aspirin 81 mg Tablet,Delayed Release (Dr/Ec) 81 mg PO DAILY RF: 0 omeprazole magnesium [Prilosec OTC] 20 mg Tablet,Delayed Release (Dr/Ec) 20 mg PO DAILY PRN (Reason: Heartburn) RF: 0 magnesium 200 mg tablet 500 mg PO DAILY RF: 0 Discontinued Entresto 24-26 mg tablet 1 tab PO BID Qty: 180 RF: 3 Discharge Orders: Discharge Order (Routine); Ordered 05/09/20 Ordered By: Ashley Sam/Other Patient Handouts: Nonalcoholic Fatty Liver Disease NAFLD, Managing Type 2 Diabetes, Managing Diabetes: The A1C Test, Eating Heart-Healthy Foods Admission Data Admit Date/Time: 05/08/20 03:46 Attending Provider: Savage Eller Admit Provider: Isabelle Barton Primary Care Provider: Yamileth Garcia V. Other Providers: Case Haas ; Isabelle Barton Other Interventions: Discharge Summary Assessment (RN) Last Done: 05/09/20 14:07 Supervising Physician Co-Signing Physician Notes Patient seen and examined on the day of discharge. I agree with the discharge summary by Ashley WILDER. I have reviewed the chart including labs, imaging and plans for discharge. spoke with Dr. Haas, patient cleared for discharge patient feeling much better, breathing easy, no chest pain - Acute on chronic systolic heart failure, non-ischemic cardiomyopathy responded well to Lasix IV will follow up closely with heart failure clinic he is euvolemic at the time of discharge Coding Level of Care Code D/C Day Management >30 mins Diagnoses Chest pain R07.9 Chest pain type: unspecified Chronic systolic (congestive) heart failure I50.22 Hypertension I10 Hypertension type: essential hypertension Diabetes mellitus type 2, uncontrolled E11.65 LEIGHA on CPAP G47.33; Z99.89 Pericardial effusion I31.3 Elevated serum creatinine R79.89 Hepatic steatosis K76.0 Non-sustained ventricular tachycardia I47.2 Gout, joint M10.9
[2020-05-09] MEDS ORDERED: INSULIN GLARGINE SOLOSTAR 100 UNITS/ML 3 ML PEN SC SCH (21:00)
== END 2020-05-09 14:45 | disposition home or self-care (01) ==
LOC: 2W 00:49 → ED 00:49 → SUATTDRO 03:46 → 2W 04:15